=== PATIENT | female | born 1940 | race Caucasian/White ===

== ENCOUNTER 2017-02-09 09:51 | Day surgery (SDC) | payer MEDICARE ==
--- NOTE | 2017-02-05 11:58 | HP ---
PREOPERATIVE HISTORY AND PHYSICAL: DATE OF ADMISSION/SURGERY: 02/09/17 DATE OF OFFICE VISIT/ENCOUNTER: 02/01/17 ATTENDING SURGEON: Jia Mckeon MD (DICTATED BY RAMIREZ CASTANEDA) PROCEDURE: Left ring and long finger trigger finger releases. CHIEF COMPLAINT: Left ring and long finger triggering. HISTORY OF PRESENT ILLNESS: This is a 76-year-old female, who has had recurrent problems with her left ring and long fingers triggering since a fall in her kitchen back in August of 2015. At that time, she caught herself with her fingers in an extended position and since then, she has had triggering which initially responded to cortisone injection. A second cortisone injection was less helpful and at this point, the patient has been symptomatic long enough and persistent enough that she is interested in pursuing a more definitive treatment for this problem. She has consented to proceed with surgical intervention in the form of left ring and long finger trigger finger release. PAST MEDICAL HISTORY: 1. History of cerebral aneurysm in 2011. 2. Hypertension. 3. Prinzmetal angina. PAST SURGICAL HISTORY: 1. A coil placed for a 1-cm cerebral aneurysm in 2011 at [facility]. 2. Right oophorectomy. 3. Appendectomy. MEDICATIONS: 1. Amlodipine besylate 5 mg daily. 2. Vitamin B12 1000 mg daily. 3. Fish oil 1000 mg 2 daily. 4. Lisinopril 5 mg daily. 5. Meclizine HCl 12.5 mg p.r.n. vertigo. 6. Metamucil 0.52 g daily. 7. Multivitamin daily. 8. Nitrostat 0.4 mg 1 tab sublingual q.5 minutes up to 3 doses p.r.n. 9. Propranolol HCl ER 60 mg daily. 10. Senna-S 8.6/50 mg four daily. 11. Vitamin D3 2000 units daily. ALLERGIES: CIPROFLOXACIN causes nausea, CODEINE causes constipation. FAMILY MEDICAL HISTORY: Heart disease, stroke, cancer. 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 She denies tobacco use and recreational drug use. She admits to alcohol use on extremely rare occasions. REVIEW OF SYSTEMS: General: Negative for fevers, chills, or night sweats. No known anesthesia problems. HEENT: Negative for headache, lightheadedness, or syncopal episodes. Positive for occasional vertigo. Integumentary: Negative for abrasions, lesions, or open wounds. Cardiothoracic: Negative for hypertension, chest pain, palpitations, or edema. Pulmonary: Negative for shortness of breath with exertion, chronic cough, COPD. GI: Negative for nausea, vomiting, diarrhea, constipation, or GERD. : Negative for nocturia, urinary frequency, urgency, history of UTIs, or kidney problem. Musculoskeletal : Positive for current complaint. Negative for chronic or intermittent back pain or history of fractures. Neurological: Negative for paresthesias, numbness , history of seizure, stroke, or epilepsy. Endocrine: Negative for diabetes or thyroid issues. Hematologic: Negative for easy bruising, anemia, excessive bleeding, or history of DVT. Infectious Disease: Negative for history of MRSA, hepatitis C, or HIV. PHYSICAL EXAMINATION GENERAL: A well-developed, well-nourished, 76-year-old female, in no acute distress. VITAL SIGNS: Height 5 feet tall, weight 139 pounds. Blood pressure 140//80, respiratory rate 15. HEENT: Normocephalic, atraumatic. Pupils are equal, round, and reactive to light and accommodation. Extraocular movements are intact. Throat is clear. NECK: Supple. No palpable lymph nodes. PULMONARY: Lungs are clear to auscultation bilaterally. No wheezes, rales, or rhonchi. CARDIOVASCULAR: Regular rate and rhythm. S1, S2. No murmurs, rubs, or gallops. No edema. ABDOMEN: Positive bowel sounds. Soft, nontender. NEUROLOGIC: Alert and oriented x3. Cranial nerves II through XII are intact. Sensation is intact to light touch. MUSCULOSKELETAL: On exam of the patient's left hand, she has tenderness to palpation at the A1 pulleys of both the ring and long fingers. She has full flexion in her fingers, but has difficulty reaching full flexion and there is active triggering as she moves through range of motion, seems to affect her ring finger more than her long finger. Neurovascular function is intact. IMPRESSION: Left hand trigger finger of ring and long fingers. PLAN: The patient is scheduled to undergo a left ring and long finger trigger finger release with Dr. Mckeon on 02/09/17. She will return to the office 10 to 14 days postop for followup and suture removal. A prescription for Ultracet was e- scribed to the patient's pharmacy for postoperative pain management. RAMIREZ CASTANEDA [id number]/[facility] #: [id number] [facility] CENTERAnnika
[~2017-02-09 09:51] MED LIST: Acetaminophen TAB* 325 MG PO PRN; DiMENhydriNATE IV* 50 MG/ML VIAL IV PUSH PRN; Famotidine IV* 10 MG/ML 2 ML (20 mg) IV ONE; oxyCODONE TAB* 5 MG TAB PO PRN
[2017-02-09] MEDS ORDERED: Buffered Lidocaine 0.9% SYRIN* 5 ML/SYR SYRINGE ONE (10:01)
[2017-02-09] MEDS ORDERED: Famotidine IV* 10 MG/ML 2 ML (20 mg) ONE (10:01)
[2017-02-09] MEDS ORDERED: Midazolam* 1 MG/ML 5 ML VIAL (5 MG) ONE (10:04)
[2017-02-09] MEDS ORDERED: fentaNYL* 50 MCG/ML 2 ML VIAL (100 MCG VIAL) ONE (10:04)
[2017-02-09] MEDS ORDERED: Buffered Lidocaine 0.9% SYRIN* 5 ML/SYR SYRINGE INTRADERM ONE (10:43)
[2017-02-09] MEDS ORDERED: Ketorolac INJ* 30 MG/ML 1 ML VIAL ONE (11:23)
[2017-02-09] MEDS ORDERED: Lidocaine 2% PF * 5 ML VIAL ONE (11:23)
[2017-02-09] MEDS ORDERED: Propofol* 10 MG/ML 20 ML BTL IV PUSH ONE (11:23)
[2017-02-09] MEDS ORDERED: Ondansetron INJ* 2 MG/ML VIAL ONE (11:23)
[2017-02-09] MEDS ORDERED: Lidocaine 1% INJ* 10 MG/ML 30 ML SDV ONE (11:45)
[2017-02-09 12:32] VITALS: BP 122/76
--- NOTE | 2017-02-10 09:44 | OP ---
DATE OF OPERATION: 02/09/17 - [facility] DATE OF : 38 SURGEON: Jia Mckeon MD ELEPHANT TAMER: RAMIREZ Reyes ANESTHESIOLOGIST: Dahlia Starks MD ANESTHESIA: Local MAC. PRE-OP DIAGNOSIS: Long and ring finger trigger, left hand. POST-OP DIAGNOSIS: Long and ring finger trigger, left hand. OPERATIVE PROCEDURE: Long and ring finger trigger release, left hand. ESTIMATED BLOOD LOSS: Zero. TOURNIQUET TIME: About 10 minutes. INDICATIONS FOR PROCEDURE: Rachel is a 76-year-old female with locking and triggering of her left long and ring fingers. She has failed conservative treatment, presents for trigger finger release. DESCRIPTION OF PROCEDURE: The patient was brought to the operating room, was given a sedation anesthetic and a local infiltration of 10 cc of 1% plain lidocaine. The skin of her left hand and forearm was prepped and draped in the usual sterile fashion. The hand and forearm were exsanguinated and the tourniquet elevated to 250 mmHg. A transverse incision was made centered over the A1 fredi of the left long and ring finger, dissected bluntly into the subcutaneous tissue, down to the A1 pulleys. The digital neurovascular bundles were located and retracted by the surgical technician Destiney Love. The A1 pulleys of the long and ring finger were then longitudinally incised, completely releasing the flexor tendons which were in good condition. The wound was irrigated and skin edges reapproximated with 4-0 nylon suture. The wound was dressed with Xeroform, 4 x 4, Webril, and an Jame wrap. The patient tolerated the procedure well, was brought to the recovery room in good condition. [id number]/[facility] #: [id number] [facility]
== END 2017-02-09 13:01 | disposition home or self-care (01) ==
LOC: OREAST 09:51
PROVIDERS: ATTEND Orthopaedic Surgery
DX: M65.332 Trigger finger, left middle finger (principal); M65.342 Trigger finger, left ring finger
CPT/HCPCS: J1885; J2001; J2250; J2405; J2704; J3010

== ENCOUNTER 2017-04-27 09:08 | Emergency (ER) | payer MEDICARE ==
[2017-04-27] MEDS ORDERED: Ketorolac INJ* 30 MG/ML 1 ML VIAL IV PUSH ONE (10:03)
[2017-04-27] MEDS ORDERED: Orphenadrine Citrate IV* 30 MG/ML 2 ML VIAL IV ONE (10:03)
[2017-04-27] MEDS ORDERED: Dexamethasone IV* 4 MG/ML 1 ML (4 MG) IV SLOW PU ONE (10:03)
[2017-04-27] MEDS ORDERED: Morphine INJ* 4 MG/ML 1 ML CARPUJECT IV ONE (10:05)
[2017-04-27] MEDS ORDERED: Ondansetron INJ* 2 MG/ML VIAL IV ONE (10:05)
[2017-04-27] MEDS ORDERED: Morphine INJ* 2 MG/ML 1 ML CARPUJECT ONE (10:13)
--- NOTE | 2017-04-27 10:39 | RAD ---
Indication: Back pain. 3 views of lumbar spine demonstrates scoliosis of the lumbar spine with convexity towards the right centered at L2. Degenerative disc disease at L3-L4, L4-L5 and L5-S1 is noted. No fracture is noted. IMPRESSION: Scoliosis of the lumbar spine with convexity towards the right.
[2017-04-27 11:24] VITALS: BP 142/78
--- NOTE | 2017-04-27 18:35 | ED ---
Kirby Conde Angela, scribed for Sidney Harley MD on 04/27/17 at 0955 . Lower Extremity - HPI Summary HPI Summary: This pt is a 77 y/o female presenting to [facility] [place] [place] c/o right sided sciatica pain x3 weeks. Pt reports that she has been given medication by her PCP with no relief. Pt's PCP is Dr. Stanton in [facility]. She states her pain begins in the middle of her right buttocks and radiates down her right leg. Pt describes her pain as "putting a knife through her leg and ripping it." Pt denies urinary or bowel incontinence, fever, chills. PMHx: low back scoliosis. - History of Current Complaint Chief Complaint: EDExtremityLower Stated Complaint: LOWER RT LEG PAIN Time Seen by Provider: 04/27/17 09:30 Hx Obtained From: Patient Onset of Pain: Days Onset/Duration: Weeks Pain Intensity: 10 Pain Scale Used: 0-10 Numeric Timing: Constant Location: Radiates To - right leg Character Of Pain: Sharp Associated Signs And Symptoms: Positive: Knee Pain. Negative: Swelling, Redness , Weakness, Dizziness, Abdominal Pain Aggravating Factor(s): Nothing Alleviating Factor(s): Nothing - Allergies/Home Medications Allergies/Adverse Reactions: Allergies Allergy/AdvReac Type Severity Reaction Status Date / Time Ciprofloxacin [From Cipro] AdvReac general Verified 02/09/17 10:06 illness Codeine AdvReac Constipatio Verified 02/09/17 10:06 n PMH/Surg Hx/FS Hx/Imm Hx Endocrine/Hematology History: Reports: Hx Anemia - reports it's not iron- deficient, naturally low on hemoglobin Denies: Hx Diabetes Cardiovascular History: Reports: Hx Hypertension - on meds Denies: Hx Congestive Heart Failure, Hx Pacemaker/ICD History: Denies: Hx Renal Disease Musculoskeletal History: Reports: Hx Arthritis - hands and back Sensory History: Reports: Hx Cataracts - reports small at this time, Hx Contacts or Glasses - glasses Denies: Hx Hearing Aid Opthamlomology History: Reports: Hx Cataracts - reports small at this time, Hx Contacts or Glasses - glasses Neurological History: Reports: Hx Migraine - none in 5 yrs, Other Neuro Impairments/Disorders - brain aneurysm/COIL Psychiatric History: Reports: Hx Depression - lot of stress - family health issues Denies: Hx Panic Disorder - Cancer History Cancer Type, Location and Year: SKIN CA- RIGHT SHOULDER Hx Chemotherapy: No Hx Radiation Therapy: No - Surgical History Surgery Procedure, Year, and Place: 1961- OVARY REMOVED and APPENDECTOMY. 1967 TUBAL LIGATION. 02/20/12 ANUERYSM COILING-EMBOLIZATIONS : MICRUS PRESIDIO, MICRUSPHER CERECYTE & CASHMERE COILS ALL MR CONTIONAL 5 UP TO 3T {per " REFERENCE MANUAL FOR MR SAFETY,IMPANTS & DEVICES : 2012 EDITION} (SW). BASAL CELL CARCINOMA REMOVEDFROM RIGHT ARM - 1990 Hx Anesthesia Reactions: No Infectious Disease History: No Infectious Disease History: Denies: Traveled Outside the [place] in Last 30 Days - Family History Known Family History: Positive: Cardiac Disease - GRANDMOTHER - [place], Other - MOTHER - [place] - Social History Alcohol Use: Rare Hx Substance Use: No Substance Use Type: Reports: None Hx Tobacco Use: No Smoking Status (MU): Never Smoked Tobacco Review of Systems Negative: Fever, Chills Eyes: Negative ENT: Negative Negative: Palpitations, Chest Pain Negative: Shortness Of Breath Negative: other - urinary or bowel incontinence Positive: Other - right leg pain, right buttocks pain Negative: Weakness, Numbness All Other Systems Reviewed And Are Negative: Yes Physical Exam - Summary Physical Exam Summary: VITAL SIGNS: Reviewed. GENERAL: Patient is a well-developed and nourished female who is lying comfortable in the stretcher. Patient is not in any acute respiratory distress. HEAD AND FACE: No signs of trauma. No ecchymosis, hematomas or skull depressions. No sinus tenderness. EYES: PERRLA, EOMI x 2, No injected conjunctiva, no nystagmus. EARS: Hearing grossly intact. Ear canals and tympanic membranes are within normal limits. MOUTH: Oropharynx within normal limits. NECK: Supple, trachea is midline, no adenopathy, no JVD, no carotid bruit, no c- spine tenderness, neck with full ROM. CHEST: Symmetric, no tenderness at palpation LUNGS: Clear to auscultation bilaterally. No wheezing or crackles. CVS: Regular rate and rhythm, S1 and S2 present, no murmurs or gallops appreciated. ABDOMEN: Soft, non-tender. No signs of distention. No rebound no guarding, and no masses palpated. Bowel sounds are normal. EXTREMITIES: FROM in all major joints, no edema, no cyanosis or clubbing. There is tenderness on the right gluteus. There is tenderness on the back of the right knee and the anterior aspect of the right leg. There are good pulses and good capillary refill. NEURO: Alert and oriented x 3. No acute neurological deficits. Speech is normal and follows commands. SKIN: Dry and warm Triage Information Reviewed: Yes Vital Signs On Initial Exam: Initial Vitals Temp Pulse Resp BP Pulse Ox 97.6 F 101 20 171/91 68 04/27/17 09:10 04/27/17 09:10 04/27/17 09:10 04/27/17 09:10 04/27/17 09:10 Vital Signs Reviewed: Yes Diagnostics - Vital Signs Vital Signs Temp Pulse Resp BP Pulse Ox 04/27/17 09:10 97.6 F 101 20 171/91 68 - Laboratory Lab Statement: Any lab studies that have been ordered have been reviewed, and results considered in the medical decision making process. - Radiology Lumbar Spine XR Xray Interpretation: Positive (See Comments) - IMPRESSION: Scoliosis of the lumbar spine with convexity towards the right. ED physician has reviewed this radiology report and agrees. Radiology Interpretation Completed By: Radiologist Re-Evaluation - Re-Evaluation First Eval Re-Evaluation Time: 11:15 Comment: The pt's pain has improved to 1 out of 10 in severity. Lower Extremity Course/Dx - Course Assessment/Plan: This pt is a 77 y/o female presenting to [facility] [place] [place] c/o right sided sciatica pain x3 weeks. Pt reports that she has been given medication by her PCP with no relief. Pt's PCP is Dr. Stanton in [facility]. She states her pain begins in the middle of her right buttocks and radiates down her right leg. Pt describes her pain as "putting a knife through her leg and ripping it.". PMHx: low back scoliosis. Lumbar spine XR reveals scoliosis of the lumbar spine with convexity towards the right. In the ED course, the pt was given Toradol, Norflex, Decadron, and morphine. The pts symptoms have significantly improved with only 1/10 pain only with movement. Pt is able to ambulate with a good steady walk. Therefore, I do believe the pt has a sciatica problem. She is scheduled for physical therapy in 1 week. Pt will be discharged home with follow up from her PCP and follow up with physical therapy. Pt is hemodynamically stable, alert and oriented x3. - Diagnoses Provider Diagnoses: Sciatica Discharge - Discharge Plan Condition: Stable Disposition: HOME Prescriptions: Methocarbamol [Robaxin-750 MG TAB] 750 mg PO TID #12 tab oxyCODONE/Acetamin 5/325 MG* [Percocet 5/325 TAB*] 1 tab PO Q6H PRN #10 tab MDD 4 PRN Reason: Pain Patient Education Materials: Sciatica (ED) Referrals: Gris Martin MD [Primary Care Provider] - Additional Instructions: Please follow up with your primary care provider. See physical therapy as scheduled in 1 week. The documentation as recorded by the Kirby hurtado Angela accurately reflects the service I personally performed and the decisions made by Cricket patricio Walter, MD.
--- NOTE | 2017-05-03 00:30 | DS ---
DISCHARGE SUMMARY: DATE OF ADMISSION: 04/27/17 DATE OF DISCHARGE: 05/02/17. ATTENDING PHYSICIAN: Dr. Torres. DISCHARGE DIAGNOSES: 1. Herniated nucleus pulposus, L4-5 on the right. 2. Hypertension. SPECIAL PROCEDURES: Lumbar diskectomy at L4-5 on the right. HOSPITAL COURSE: This is a 77-year-old female presented to the [facility] ED on 04/27/17 with severe right -sided lumbar radiculopathy and intractable back pain. She was admitted for medical management and further evaluation of these conditions. MRI of the lumbar spine was obtained on 04/30/17, which azeem wed a large herniated disk at L4-5 on the right. Pain was managed with oral and IV pain medications , some of which she did not tolerate well. Neurosurgery was consulted for the herniated disk and po ssible surgical treatments. Elective surgical therapy with lumbar diskectomy at L4-5 on the right. Operation was discussed with the patient and she consented to this surgery. On 05/01/17, she was t aken to surgery where under general anesthesia, a lumbar diskectomy at L4-5 on the right operation w as carried out. Postoperatively, she was feeling well and the right lower extremity pain was resolve d. She continued to have some numbness of the right foot. She is ambulating independently and she was eating, drinking, and voiding without difficulty. Pain is well controlled postoperatively with oral pain medications. On the 1st postoperative day, she was discharged home to the care of her [facility]. DISCHARGE INSTRUCTIONS: Wound care and activity level were discussed with the patient and informati on was provided. FOLLOWUP: She will be seen in office on 05/09/17 for followup and staple removal. DISCHARGE MEDICAT IONS: 1. Colace 100 mg 1 capsule by mouth twice daily. 2. Senna 1 tab by mouth daily. RAMIREZ WALKER [id number]/[facility] #: [id number]
== END 2017-04-27 11:34 | disposition home or self-care (01) ==
LOC: ED 09:08
DX: M54.31 Sciatica, right side (principal); M41.9 Scoliosis, unspecified; I10 Essential (primary) hypertension; Z85.828 Personal history of other malignant neoplasm of skin; Z88.5 Allergy status to narcotic agent; Z88.1 Allergy status to other antibiotic agents
CPT/HCPCS: 72100; 96374; 96375; 99282; J1100; J1885; J2270; J2360; J2405

== ENCOUNTER 2017-04-28 15:13 | Inpatient (IN) | payer MEDICARE ==
[2017-04-28] MEDS ORDERED: HYDROmorphone INJ* 1 MG/ML CARPUJECT SYRINGE IV SLOW PU ONE (16:04)
[2017-04-28] MEDS ORDERED: Ondansetron INJ* 2 MG/ML VIAL IV ONE (16:04)
[2017-04-28] MEDS ORDERED: NS 0.9% 1000 ML* 1,000 ML IV ONE (16:36)
[2017-04-28 16:58] LABS: Hematocrit 34 % (35-47); Hemoglobin 11.6 g/dl (12.0-16.0); Mean Corpuscular HGB Conc 34 g/dl (31-36); Mean Corpuscular Hemoglobin 31 pg (27-31); Mean Corpuscular Volume 91 fL (80-97); Mean Platelet Volume 7 um3 (7.4-10.4); Red Blood Count 3.76 10^6/ul (4.0-5.4); Red Cell Distribution Width 13 % (10.5-15); White Blood Count 16.5 10^3/ul (3.5-10.8)
[2017-04-28] MEDS ORDERED: Metoclopramide IV* 5 MG/ML 2 ML VIAL ONE (16:59)
[2017-04-28 17:09] LABS: Albumin 3.8 g/dL (3.2-5.2); BUN/Creatinine Ratio 15.9 (8-20); Calcium 9.1 mg/dL (8.6-10.3); EGFR African American 86.7 (>60); EGFR Non-African American 67.4 (>60); Globulin 2.7 g/dL (2-4); Potassium 3.2 mmol/L (3.5-5.0); Total Bilirubin 0.7 mg/dL (0.2-1.0); Total Protein 6.5 g/dL (6.4-8.9)
[2017-04-28] MEDS ORDERED: Metoclopramide IV* 5 MG/ML 2 ML VIAL IV SLOW PU ONE (17:19)
[2017-04-28 17:45] LABS: C Reactive Protein 2.85 mg/L (< 5.00)
[2017-04-28] MEDS ORDERED: Potassium Chloride LIQUID* 20 MEQ PACKET PO ONE (17:48)
[2017-04-28] MEDS ORDERED: Promethazine INJ(RESTRICTED)* 25 MG/ML 1 ML VIAL IV ONE (17:53)
[2017-04-28] MEDS ORDERED: Al Hydrox/Mg Hydrox/Simet LIQ* 30 ML UDC PO PRN (18:01)
[2017-04-28] MEDS ORDERED: Morphine INJ* 2 MG/ML 1 ML CARPUJECT IV PRN (18:01)
[2017-04-28] MEDS ORDERED: Potassium Phosphate IV* 15 MMOLE in NS 0.9% 250 ML* 250 ML IVPB ONE (18:44)
[2017-04-28] MEDS ORDERED: Enoxaparin(*) 40 MG/0.4 ML SYR SUBCUT SCH (19:00)
[2017-04-28 19:06] LABS: Erythrocyte Sed Rate 16 mm/Hr (0-40)
[2017-04-28] MEDS ORDERED: Ondansetron INJ* 2 MG/ML VIAL IV PRN (20:02)
--- NOTE | 2017-04-28 23:00 | HP ---
HISTORY AND PHYSICAL: DATE OF ADMISSION: 04/28/17 TIME OF ADMISSION: 06:30 p.m. PRIMARY CARE PHYSICIAN: Dr. Ramsey. CHIEF COMPLAINT: Low back pain. HISTORY OF PRESENT ILLNESS: This is a 77-year-old female with history of hypertension, who presents to the emergency department after 4 weeks of ongoing low back pain. It began 3 to 4 weeks ago suddenly one morning when she woke up. She recalls no trauma, no fall, no heavy lifting, and cannot think of any event that would have caused this type of pain. It began in the lower part of her back on the right side and is described as knife like. The pain is intermittent. She cannot associate it with any particular positions or movements that aggravate it nor can she identify any relieving factors. The pain comes on randomly and sometimes lasts for just seconds and sometimes is unremitting. The pain radiates down her right leg all the way to the tips of her toes and she describes it as on both the front and the back of the leg. Prior to 3 weeks ago, she was able to ambulate without any difficulty or assistive devices; however, over the past week, she has had trouble ambulating in her home. When this first began, she went to her chiropractor and had several adjustments, which occasionally helped but not consistently. She also went to see her PCP, who prescribed prednisone and gabapentin, which she reports did not help, then yesterday the pain became unbearable so she came to the emergency department. Here, she was given a prescription for Percocet, which she was taking as prescribed and got no relief, so she came back today to the emergency department. Since she has been in the emergency department, she received 1 mg of Dilaudid, which just made her nauseous and did not relieve the pain. She denies any recent weight loss or weight gain. No recent travel. No IV drug use. PAST MEDICAL HISTORY: 1. "Heart spasms." 2. Hypertension. PAST SURGICAL HISTORY: 1. Brain aneurysm, status post coiling in January of 2012. 2. Trigger finger release in January of 2017. ALLERGIES: CODEINE and CIPROFLOXACIN. SOCIAL HISTORY: She lives in a home with her daughter. She does not smoke or drink alcohol. Her healthcare proxy is her daughter, Izabel. Izabel's phone number is [phone]. REVIEW OF SYSTEMS: General: Denies weight loss, but does note some weight gain. Denies any recent illness or hospitalization. HEENT: Denies change in vision. Denies headaches or neck stiffness. Chest: Denies chest pain, shortness of breath. Does note occasional palpitations. Abdomen: Denies nausea, vomiting, constipation or diarrhea. Denies bowel or bladder incontinence. Denies saddle anesthesia. Extremities: Notes right lower extremity pain associated with occasional weakness and severe low back pain. PHYSICAL EXAMINATION GENERAL: Alert, well-appearing female, in no distress. VITAL SIGNS: Temperature 97.4 degrees, heart rate 69, respiratory rate 16, pulse ox 100% on room air, blood pressure 129/72. HEENT: Pupils equal, round, and reactive to light. Extraocular movements intact. No nystagmus. Moist mucosa. NECK: No JVP. Thyroid is nonpalpable. No cervical adenopathy. CHEST: Regular rate and rhythm. No murmurs. PMI nondisplaced. Lungs are clear bilaterally. ABDOMEN: Soft, nontender, nondistended. Normoactive bowel sounds. EXTREMITIES: No edema. No ecchymosis. Pulses 2+ bilaterally. Sensation intact. NEUROLOGIC: Back is nontender to palpation; however, she localizes the pain superiorly to the right posterior superior iliac spine. A right lower extremity straight leg raise test is positive and reproduces the pain. Her strength is 5+ throughout except in hip flexion which is limited by pain. LABORATORY DATA: White blood cells 16.5, hemoglobin 11.6, platelets 373. Sodium 125, potassium 3.2, chloride 94, bicarbonate 22, BUN 13, creatinine 0.82 , glucose 122. IMAGING: Lumbar spine x-ray done on 04/27/17 showed scoliosis of the lumbar spine with convexity towards the right. ASSESSMENT AND PLAN: This is a 77-year-old female with history of hypertension presenting with 3 to 4 weeks of worsening low back pain, now with the inability to walk due to pain and is being admitted for intractable pain. 1. Low back pain. Her pain has been nonresponsive to conservative measures so it is appropriate that she is admitted for intractable pain. We will switch her Percocet to IV morphine, which worked for her yesterday. She needs a physical therapy consult for evaluation and ultimately likely needs an MRI as her pain has been nonresponsive to conservative management for 1 month. This likely cannot be done on the weekend; however if her pain does not improve over the next 24 hours, she may be a good candidate for an inpatient MRI after tomorrow. She has no midline point tenderness concerning for an epidural process and she has no bowel or bladder incontinence that would suggest red flag signs. 2. Hypertension. Continue home doses of amlodipine and lisinopril. 3. "Heart spasms." I am not sure what these are, perhaps palpitations, continue propranolol ER 60 mg daily. She follows with Dr. Alejandro for this. 4. DVT prophylaxis. Start Lovenox subcutaneously. 5. Hyponatremia. This is noted to be chronic on all of her admissions. It may be exacerbated today by the pain. She is euvolemic. No intervention needed. 6. Hypokalemia. Replete p.o. now. 7. Leukocytosis, likely related to a leukemoid reaction from pain. She has no focal evidence of an infection. Continue to monitor. TIME SPENT: Greater than 60 minutes were spent on this admission. Greater than half of the time was spent face to face with the patient and her daughter. [id number]/[facility] #: [id number] MTD[facility]
[2017-04-28] MEDS: Morphine INJ* 2 MG/ML 1 ML SYRINGE (TWO MG - NEW SYRINGE VERSION) IV PRN (23:21)
[2017-04-29] MEDS: Morphine INJ* 2 MG/ML 1 ML SYRINGE (TWO MG - NEW SYRINGE VERSION) IV PRN (02:37)
[2017-04-29] MEDS: fentaNYL* 50 MCG/ML 2 ML VIAL (100 MCG VIAL) IV PRN ×5 (04:41→18:19)
[2017-04-29 06:09] LABS: Hematocrit 38 % (35-47); Hemoglobin 12.8 g/dl (12.0-16.0); Mean Corpuscular HGB Conc 34 g/dl (31-36); Mean Corpuscular Hemoglobin 31 pg (27-31); Mean Corpuscular Volume 91 fL (80-97); Mean Platelet Volume 7 um3 (7.4-10.4); Red Blood Count 4.15 10^6/ul (4.0-5.4); Red Cell Distribution Width 14 % (10.5-15); White Blood Count 12.7 10^3/ul (3.5-10.8)
[2017-04-29 06:19] LABS: BUN/Creatinine Ratio 13.2 (8-20); Calcium 9.1 mg/dL (8.6-10.3); EGFR African American 94.7 (>60); EGFR Non-African American 73.6 (>60); Potassium 4.1 mmol/L (3.5-5.0)
[2017-04-29] MEDS ORDERED: Lidocaine PATCH 5%* 1 PATCH TRANSDERM SCH (08:00)
[2017-04-29] MEDS: Acetaminophen TAB* 325 MG PO SCH ×3 (08:55→20:08)
[2017-04-29] MEDS: Propranolol LA CAP* 60 MG PO SCH (08:55)
[2017-04-29] MEDS: Cyanocobalamin TAB* 500 MCG PO SCH (08:56)
[2017-04-29] MEDS: amLODIPine TAB* 5 MG PO SCH (08:56)
[2017-04-29] MEDS: Lisinopril TAB* 5 MG PO SCH (08:56)
[2017-04-29] MEDS ORDERED: Influenza VAC *QUAD* 2017-18* 0.5 ML SYRINGE IM ONE (09:00)
--- NOTE | 2017-04-29 13:49 | PN ---
Subjective Date of Service: 04/29/17 Interval History: Patient seen this morning. Continues to complain of low back pain radiating down the R leg. Some slight tingling in her R foot at times. Denies bladder/ bowel incontinence. Hip flexion limited by pain. Family History: Unchanged from Admission Social History: Unchanged from Admission Past Medical History: Unchanged from Admission Objective Active Medications: Acetaminophen (Tylenol Tab*) 975 mg PO TID GISEL Al Hydrox/Mg Hydrox/Simethicone (Maalox Plus*) 30 ml PO Q6H PRN Amlodipine Besylate (Norvasc Tab*) 5 mg PO QAM GISEL Aspirin (Aspirin Low Dose Tab*) 81 mg PO QPM GISEL Cyanocobalamin (Vitamin B12 Tab*) 1,000 mcg PO QAM GISEL Docusate Sodium (Colace Cap*) 100 mg PO BID GISEL Enoxaparin Sodium (Lovenox(*)) 40 mg SUBCUT Q24H GISEL Fentanyl Citrate (Fentanyl*) 50 mcg IV Q2H PRN Gabapentin (Neurontin Cap(*)) 200 mg PO TID GISEL Lidocaine (Lidoderm 5% Patch*) 1 patch TRANSDERM .SEE ORDER GISEL Lisinopril (Prinivil Tab*) 5 mg PO QAM GISEL Ondansetron HCl (Zofran Inj*) 4 mg IV Q6H PRN Pharmacy Profile Note (Lidocaine Patch Remove*) 1 note N/A 2100 GISEL Propranolol HCl (Inderal La Cap*) 60 mg PO DAILY [facility] Senna (Senokot Tab*) 1 tab PO DAILY [facility] Oxygen Devices in Use Now: None Appearance: Elderly, F, laying in bed in NAD Eyes: No Scleral Icterus Ears/Nose/Mouth/Throat: Mucous Membranes Moist Neck: NL Appearance and Movements; NL JVP Respiratory: Symmetrical Chest Expansion and Respiratory Effort, Clear to Auscultation Cardiovascular: NL Sounds; No Murmurs; No JVD, RRR Abdominal: NL Sounds; No Tenderness; No Distention Lymphatic: No Cervical Adenopathy Extremities: No Edema Skin: No Rash or Ulcers Neurological: Alert and Oriented x 3, - - Hip flexion limited by pain, straight leg raise elicits same pain radiating down the leg, reports some diminished sensation over plantar surface of R foot Result Diagrams: 04/29/17 05:45 04/29/17 05:45 Assess/Plan/Problems-Billing Assessment: Radicular back pain in a 77 yo F with hx of HTN, chronic hyponatremia - Patient Problems (1) Back pain Current Visit: Yes Comment: Seems like radiculopathy. Did not tolerate morphine or dilaudid, changed to Fentanyl overnight, will continue. Add ATC tylenol, Lidoderm patch and gabapentin. Agree with MRI for tomorrow as this has been ongoing and worsening for nearly one month. Bowel regimen. (2) HTN (hypertension) Current Visit: Yes Comment: Continue Amlodipine, Propranolol and Lisinopril (3) DVT prophylaxis Current Visit: Yes Comment: Lovenox SQ Status and Disposition: Inpatient for intractable pain
[2017-04-29] MEDS: Gabapentin CAP(*) 100 MG PO SCH ×2 (13:58→20:08)
[2017-04-29] MEDS: Senna TAB PO SCH (13:58)
[2017-04-29] MEDS: Aspirin Low Dose CHEW TAB* 81 MG PO SCH (17:20)
[2017-04-29] MEDS: Docusate CAP* 100 MG PO SCH (20:08)
[2017-04-29] MEDS: Lidocaine Patch REMOVE* 1 NOTE MISC SCH (20:13)
[2017-04-29] MEDS ORDERED: Enoxaparin(*) 40 MG/0.4 ML SYR SUBCUT SCH (21:00)
[2017-04-30] MEDS: fentaNYL* 50 MCG/ML 2 ML VIAL (100 MCG VIAL) IV PRN ×7 (03:25→22:00)
[2017-04-30 07:28] LABS: Hematocrit 36 % (35-47); Hemoglobin 12.4 g/dl (12.0-16.0); Mean Corpuscular HGB Conc 34 g/dl (31-36); Mean Corpuscular Hemoglobin 31 pg (27-31); Mean Corpuscular Volume 92 fL (80-97); Mean Platelet Volume 7 um3 (7.4-10.4); Red Blood Count 3.95 10^6/ul (4.0-5.4); Red Cell Distribution Width 14 % (10.5-15); White Blood Count 9.3 10^3/ul (3.5-10.8)
[2017-04-30 07:48] LABS: BUN/Creatinine Ratio 17.5 (8-20); EGFR African American 71.4 (>60); EGFR Non-African American 55.5 (>60); Potassium 3.8 mmol/L (3.5-5.0)
[2017-04-30] MEDS: Cyanocobalamin TAB* 500 MCG PO SCH (08:14)
[2017-04-30] MEDS: Acetaminophen TAB* 325 MG PO SCH ×3 (08:14→19:54)
[2017-04-30] MEDS: Propranolol LA CAP* 60 MG PO SCH (08:14)
[2017-04-30] MEDS: Senna TAB PO SCH (08:14)
[2017-04-30] MEDS: Lisinopril TAB* 5 MG PO SCH (08:14)
[2017-04-30] MEDS: Docusate CAP* 100 MG PO SCH ×2 (08:15→19:55)
[2017-04-30] MEDS: Gabapentin CAP(*) 100 MG PO SCH ×3 (08:15→19:55)
[2017-04-30] MEDS: amLODIPine TAB* 5 MG PO SCH (08:15)
--- NOTE | 2017-04-30 11:06 | RAD ---
HISTORY: Progressive and intractable back pain COMPARISONS: None TECHNIQUE: The following sequences were obtained of the lumbar spine: Sagittal and axial T1- and T2-weighted images, coronal T2-weighted images, and sagittal STIR images. FINDINGS: SPINAL CORD, CONUS, AND CAUDA EQUINA: There is extruded disc fragment versus a nodule of the cauda equina opposite of L4 measuring approximately 0.8 cm transversely. ALIGNMENT: There is a dextroscoliotic curvature of the spine. VERTEBRAL BODIES: There is a hemangioma of L3. There is multilevel anterolateral marginal osteophyte formation. The vertebral bodies are preserved in height. JOINTS: There is diffuse facet osteoarthritic change MUSCULATURE: Unremarkable INTERVERTEBRAL DISCS: There is diffuse loss of intervertebral disc height and T2 signal throughout the spine. AXIAL IMAGES: L2-L3: There is broad based disc bulge with a small central disc protrusion measuring 0.2 centers in depth. There is bilateral facet hypertrophy. There is severe left neural foraminal narrowing. There is no significant central canal stenosis. L3-L4: There is a broad-based disc bulge. There is a disc extrusion extending from L4-L5 impinging upon the descending nerve roots on the right. As noted above, there is also nodularity noted in the left lateral recess at this level measuring 0.8 cm transversely which may represent a nodule of the nerve roots versus an extruded disc fragment. There is no disc extrusion and nodule versus disc fragment 2. Results in moderate to severe narrowing of the central canal L4-L5: There is broad-based disc bulge. There is a a right lateral recess superior disc extrusion measuring 1 cm in depth and 2 cm in cranial caudal dimension, extending to the L3-L4 level. There is bilateral facet hypertrophy with ligamentous of atrophy. There is severe right neural foraminal narrowing. L5-S1: There is bilateral facet hypertrophy. There is mild bilateral neuroforaminal narrowing. There is no significant central canal stenosis. SOFT TISSUES: The visualized soft tissues of the abdomen are unremarkable. OTHER: None. IMPRESSION: 1. SCOLIOSIS. 2. DEGENERATIVE DISC DISEASE AND OSTEOARTHRITIS. 3. THERE IS A LARGE RIGHT-SIDED DISC EXTRUSION AT L4-L5 EXTENDING TO THE L3-L4 LEVEL, WITH MASS EFFECT UPON THE DESCENDING NERVE ROOTS. 4. ADDITIONALLY, THERE IS A NODULE NOTED IN THE LEFT LATERAL RECESS AT L3-L4. IT IS UNCLEAR IF THIS REPRESENTS AN EXTRUDED DISC FRAGMENT OR A NODULE OF THE NERVE ROOTS OF THE CAUDA EQUINA. THE DIFFERENTIAL INCLUDES PERIPHERAL NERVE SHEATH TUMOR. RECOMMEND CONSIDERATION OF FURTHER EVALUATION WITH POSTCONTRAST ENHANCED MRI OF THE LUMBAR SPINE. 5. THERE IS MULTILEVEL NEURAL FORAMINAL NARROWING DESCRIBED ABOVE. THERE IS MODERATE TO SEVERE NARROWING OF THE CENTRAL CANAL AT L3-L4.
[2017-04-30] MEDS ORDERED: Magnesium Hydroxide LIQ* 30 ML UDC PO PRN (12:31)
[2017-04-30] MEDS: Polyethylene Glycol 3350* 17 GM PACKET PO SCH ×2 (13:57→19:55)
--- NOTE | 2017-04-30 14:38 | PN ---
Subjective Date of Service: 04/30/17 Interval History: Patient seen this morning. Pain mostly unchanged. R foot tingling unchanged. Reports feeling constipated, OK PO intake. Family History: Unchanged from Admission Social History: Unchanged from Admission Past Medical History: Unchanged from Admission Objective Active Medications: Acetaminophen (Tylenol Tab*) 975 mg PO TID [facility] Last Admin: 04/30/17 13:57 Dose: 975 mg Al Hydrox/Mg Hydrox/Simethicone (Maalox Plus*) 30 ml PO Q6H PRN PRN Reason: INDIGESTION Amlodipine Besylate (Norvasc Tab*) 5 mg PO QAM [facility] Last Admin: 04/30/17 08:15 Dose: 5 mg Aspirin (Aspirin Low Dose Tab*) 81 mg PO QPM [facility] Last Admin: 04/29/17 17:20 Dose: 81 mg Cyanocobalamin (Vitamin B12 Tab*) 1,000 mcg PO QAM [facility] Last Admin: 04/30/17 08:14 Dose: 1,000 mcg Docusate Sodium (Colace Cap*) 100 mg PO BID [facility] Last Admin: 04/30/17 08:15 Dose: 100 mg Enoxaparin Sodium (Lovenox(*)) 40 mg SUBCUT Q24HR@2100 [facility] Last Admin: 04/29/17 20:07 Dose: 40 mg Fentanyl Citrate (Fentanyl*) 50 mcg IV Q2H PRN PRN Reason: PAIN Last Admin: 04/30/17 13:56 Dose: 50 mcg Gabapentin (Neurontin Cap(*)) 200 mg PO TID [facility] Last Admin: 04/30/17 13:56 Dose: 200 mg Lidocaine (Lidoderm 5% Patch*) 1 patch TRANSDERM .SEE ORDER [facility] Last Admin: 04/30/17 13:57 Dose: 1 patch Lisinopril (Prinivil Tab*) 5 mg PO QAM [facility] Last Admin: 04/30/17 08:14 Dose: 5 mg Magnesium Hydroxide (Milk Of Magnesia Liq*) 30 ml PO Q6H PRN PRN Reason: CONSTIPATION Ondansetron HCl (Zofran Inj*) 4 mg IV Q6H PRN PRN Reason: NAUSEA Last Admin: 04/28/17 20:20 Dose: 4 mg Pharmacy Profile Note (Lidocaine Patch Remove*) 1 note N/A 2100 [facility] Last Admin: 04/29/17 20:13 Dose: Not Given Polyethylene Glycol/Electrolytes (Miralax*) 17 gm PO 0800,2100 [facility] Last Admin: 04/30/17 13:57 Dose: 17 gm Propranolol HCl (Inderal La Cap*) 60 mg PO DAILY [facility] Last Admin: 04/30/17 08:14 Dose: 60 mg Senna (Senokot Tab*) 1 tab PO DAILY [facility] Last Admin: 04/30/17 08:14 Dose: 1 tab Vital Signs 04/29/17 04/29/17 04/29/17 14:59 15:57 16:27 Temperature 98.6 F Pulse Rate 76 Respiratory 16 16 18 Rate Blood Pressure 137/67 (mmHg) O2 Sat by Pulse 100 Oximetry 04/30/17 04/30/17 04/30/17 04:25 07:29 08:03 Temperature 98.0 F Pulse Rate 74 Respiratory 17 16 20 Rate Blood Pressure 130/63 (mmHg) O2 Sat by Pulse 98 Oximetry Oxygen Devices in Use Now: None Appearance: Elderly, F, laying in bed in NAD Eyes: No Scleral Icterus Ears/Nose/Mouth/Throat: Mucous Membranes Moist Neck: NL Appearance and Movements; NL JVP Respiratory: Symmetrical Chest Expansion and Respiratory Effort, Clear to Auscultation Cardiovascular: NL Sounds; No Murmurs; No JVD, RRR Abdominal: NL Sounds; No Tenderness; No Distention Lymphatic: No Cervical Adenopathy Extremities: No Edema Skin: No Rash or Ulcers Neurological: Alert and Oriented x 3, - - 5/5 strength in B/L LEs, reports diminished sensation over plantar surface of R foot Result Diagrams: 04/30/17 07:07 04/30/17 07:07 Assess/Plan/Problems-Billing Assessment: Radicular back pain in a 77 yo F with hx of HTN, chronic hyponatremia - Patient Problems (1) Back pain Current Visit: Yes Comment: MRI shows significant disc herniation, spoke with Neurosurgery who will evaluate the patient to consider need for operative management. Obtained cath report from [facility] 2013 which was unremarkable. Patient has no hx of IL, CHF, DM, CKD, CVA or exertional CP/dyspnea. She does not require any additional work-up prior to surgery if it is indicated Continue Fentanyl, ATC tylenol, Lidoderm patch and gabapentin. Bowel regimen. (2) HTN (hypertension) Current Visit: Yes Comment: Continue Amlodipine, Propranolol and Lisinopril (3) DVT prophylaxis Current Visit: Yes Comment: Lovenox SQ Status and Disposition: Inpatient for intractable pain
[2017-04-30] MEDS: Aspirin Low Dose CHEW TAB* 81 MG PO SCH (16:57)
--- NOTE | 2017-04-30 17:05 | PN ---
Progress Note - Progress Note Date of Service: 04/30/17 SOAP: Subjective: [] Patient seen for back, right leg pain 3 week hx and large HNP on MRI Objective: []Weakness rt quad,hip flexors KJ trace on RT SLR positive on RT Assessment: [] HNP L4-5 RT Plan: [] Surgery sched for AM 10/3 Full Consult Dictated
[2017-04-30] MEDS: Lidocaine Patch REMOVE* 1 NOTE MISC SCH (19:55)
--- NOTE | 2017-04-30 21:02 | RAD ---
INDICATION: Wheezing COMPARISON: Chest x-ray July 14, 2016 TECHNIQUE: Single AP portable view of the chest was obtained. FINDINGS: Image quality is compromised due to the relative inferiority of a portable chest x-ray. The heart and mediastinum exhibit normal size and contour. The lungs are grossly clear. There is no evidence of a large pleural effusion. Visualized bones are normal for the patient's age. IMPRESSION: No radiographic evidence for acute cardiopulmonary abnormality on this portable chest x-ray.
--- NOTE | 2017-04-30 22:03 | CONS ---
INPATIENT CONSULTATION NOTE: DATE OF CONSULTATION: 04/30/17 CHIEF COMPLAINT: Back and right leg pain. HISTORY OF PRESENT ILLNESS: This is a 77-year-old lady awakened with the sudden onset of pain in her back with radiation into her right leg approximately 3 weeks ago. She has a long history of chronic back pain for which she seeks regular rn homecare, which is usually successful. In the last 3 weeks, she has had rn homecare with no relief. She has pain in her back with radiation into her right leg as well as numbness involving her right leg and foot. She has had give away weakness when she tries to go up and down stairs involving her right quadriceps muscle. She was admitted to the hospitalist service and an MRI study obtained showing a large ruptured disk at L4-5 on the right side with a superiorly migrated fragment. Neurosurgical consultation was requested. The patient has persistent pain whenever she tries to get up and ambulate. PAST MEDICAL HISTORY: Significant for previous diagnosis of hypertension. 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 ALLERGIES: She is allergic to CODEINE and CIPRO. FAMILY HISTORY: Family history was taken and did not contribute to this illness. SOCIAL HISTORY: She does not smoke or drink. Has a supportive family. REVIEW OF SYSTEMS: Systems review was performed and did not contribute to this illness. PHYSICAL EXAMINATION: Vital Signs: She was noted to have a blood pressure of 129/72 with heart rate of 69, temperature of 97.4, respirations of 16. HEENT: Normal. Neck: Supple. Lungs: Clear to auscultation. Cardiovascular exam revealed a regular rate and rhythm. Abdomen: Soft with normal bowel sounds. No tenderness. Extremities: Full range of passive motion. Straight leg raise test was positive on the right side at 45 degrees. Reflexes were trace at the right knee and 2+ at the left knee, and 1+ at both ankles, with downgoing toes and no clonus. Motor examination revealed mild weakness of her hip flexors and quadriceps muscle on the right side. IMAGING: An MRI study showed a disk herniation at L4-5 on the right side with a superiorly migrated fragment. There is also a question of a possible intrathecal cystic area on the left side. IMPRESSION: She is symptomatic from a large free fragment disk herniation. A proposed procedure of lumbar diskectomy was explained in detailed to the patient. The risks of surgery to include bleeding, infection, numbness, weakness , CSF leak, and potential failure to relieve her pain were all discussed. Surgery will be scheduled for 05/01/17. [id number]/[facility] #: [id number] [facility]
[2017-05-01] MEDS: fentaNYL* 50 MCG/ML 2 ML VIAL (100 MCG VIAL) IV PRN ×3 (00:22→05:34)
[2017-05-01] MEDS: amLODIPine TAB* 5 MG PO SCH (05:30)
[2017-05-01] MEDS: Propranolol LA CAP* 60 MG PO SCH (05:30)
[2017-05-01] MEDS ORDERED: Bacitracin IV* 50,000 UNITS INJ ONE (07:26)
[2017-05-01] MEDS ORDERED: Lidocaine 1% MPF wEPI 200,000* 30 ML SDV ONE (07:26)
[2017-05-01] MEDS ORDERED: Thrombin 5,000 UNITS* 1 APPLIC KIT - topical use - TOPICAL ONE (07:26)
[2017-05-01] MEDS ORDERED: ceFAZolin 2 GM PREMIX (*) 50 ML IVPB ONE (07:28)
[2017-05-01] MEDS ORDERED: Lidocaine 2% PF * 5 ML VIAL ONE (07:37)
[2017-05-01] MEDS ORDERED: Propofol* 10 MG/ML 20 ML BTL IV PUSH ONE (07:37)
[2017-05-01] MEDS ORDERED: Dexamethasone IV* 4 MG/ML 1 ML (4 MG) ONE (07:37)
[2017-05-01] MEDS ORDERED: Rocuronium* 10 MG/ML VIAL ONE (07:38)
[2017-05-01] MEDS ORDERED: fentaNYL* 50 MCG/ML 2 ML VIAL (100 MCG VIAL) ONE (07:38)
[2017-05-01] MEDS ORDERED: Glycopyrrolate IV* 0.2 MG/ML 1 ML VIAL ONE (08:39)
[2017-05-01] MEDS ORDERED: Neostigmine Methylsulfate* 2 MG/2 ML SYRINGE ONE (08:39)
[2017-05-01] MEDS ORDERED: fentaNYL* 50 MCG/ML 2 ML VIAL (100 MCG VIAL) IV PRN (08:43)
[2017-05-01] MEDS ORDERED: Ketorolac INJ* 30 MG/ML 1 ML VIAL IV PRN (08:43)
[2017-05-01] MEDS ORDERED: traMADol TAB* 50 MG PO PRN (09:07)
[2017-05-01] MEDS: Polyethylene Glycol 3350* 17 GM PACKET PO SCH ×2 (10:42→20:50)
[2017-05-01] MEDS: Docusate CAP* 100 MG PO SCH ×2 (10:42→20:48)
[2017-05-01] MEDS: Cyanocobalamin TAB* 500 MCG PO SCH (10:42)
[2017-05-01] MEDS: Gabapentin CAP(*) 100 MG PO SCH ×3 (10:42→20:49)
[2017-05-01] MEDS: Acetaminophen TAB* 325 MG PO SCH ×3 (10:42→20:49)
[2017-05-01] MEDS: Senna TAB PO SCH (10:43)
[2017-05-01] MEDS: Lisinopril TAB* 5 MG PO SCH (10:43)
--- NOTE | 2017-05-01 10:53 | RAD ---
INDICATION: L4-L5 discectomy. COMPARISON: April 30, 2017 MRI. TECHNIQUE: Prone crosstable lateral lumbar spine 0820 hours FINDINGS: Anterior margin of instrument at level of the L4-L5 facet joints. IMPRESSION: Interoperative control films.
--- NOTE | 2017-05-01 13:12 | PN ---
Subjective Date of Service: 05/01/17 Interval History: Patient seen after surgery this morning. Reports back pain radiating down the leg has resolved along with the R foot numbness. Only pain is at surgical site. Has been ambulatory in the room. Family History: Unchanged from Admission Social History: Unchanged from Admission Past Medical History: Unchanged from Admission Objective Active Medications: Acetaminophen (Tylenol Tab*) 975 mg PO TID [facility] Al Hydrox/Mg Hydrox/Simethicone (Maalox Plus*) 30 ml PO Q6H PRN Amlodipine Besylate (Norvasc Tab*) 5 mg PO 0900 [facility] Aspirin (Aspirin Low Dose Tab*) 81 mg PO QPM [facility] Cyanocobalamin (Vitamin B12 Tab*) 1,000 mcg PO QAM [facility] Docusate Sodium (Colace Cap*) 100 mg PO BID [facility] Gabapentin (Neurontin Cap(*)) 200 mg PO TID [facility] Lactated Ringer's (Lactated Ringers 1000 Ml Bag*) 1,000 mls @ 75 mls/hr IV .per rate [facility] Lisinopril (Prinivil Tab*) 5 mg PO QAM [facility] Magnesium Hydroxide (Milk Of Magnesia Liq*) 30 ml PO Q6H PRN Ondansetron HCl (Zofran Inj*) 4 mg IV Q6H PRN Polyethylene Glycol/Electrolytes (Miralax*) 17 gm PO 0800,2100 [facility] Propranolol HCl (Inderal La Cap*) 60 mg PO 0900 [facility] Senna (Senokot Tab*) 1 tab PO DAILY [facility] Tramadol HCl (Ultram*) 50 mg PO Q6H PRN Vital Signs 04/30/17 04/30/17 04/30/17 13:56 14:56 15:06 Temperature 98.2 F Pulse Rate 75 Respiratory 14 16 16 Rate Blood Pressure 121/60 (mmHg) O2 Sat by Pulse 96 Oximetry 04/30/17 04/30/17 04/30/17 22:00 23:00 23:54 Temperature 98.1 F Pulse Rate 73 Respiratory 20 19 16 Rate Blood Pressure 119/70 (mmHg) O2 Sat by Pulse 99 Oximetry 05/01/17 05/01/17 05/01/17 10:15 10:30 11:00 Temperature 97.4 F Pulse Rate 73 72 75 Respiratory 18 18 17 Rate Blood Pressure 155/84 150/75 (mmHg) O2 Sat by Pulse 97 97 96 Oximetry Oxygen Devices in Use Now: None Appearance: Elderly, F, laying in bed in NAD Eyes: No Scleral Icterus Ears/Nose/Mouth/Throat: Mucous Membranes Moist Neck: NL Appearance and Movements; NL JVP Respiratory: Symmetrical Chest Expansion and Respiratory Effort, - - Rales in B/ L bases Cardiovascular: NL Sounds; No Murmurs; No JVD, RRR Abdominal: NL Sounds; No Tenderness; No Distention Lymphatic: No Cervical Adenopathy Extremities: No Edema Skin: No Rash or Ulcers Neurological: Alert and Oriented x 3, NL Sensation, NL Muscle Strength and Tone Result Diagrams: 04/30/17 07:07 04/30/17 07:07 Assess/Plan/Problems-Billing Assessment: Radicular back pain in a 77 yo F with hx of HTN, chronic hyponatremia - Patient Problems (1) Back pain Current Visit: Yes Comment: MRI showed significant disc herniation. Appreciate Dr. Torres assistance, patient s/p discectomy on 05/01 with improvement in her symptoms Continue ATC tylenol, Lidoderm patch and gabapentin. Bowel regimen. (2) HTN (hypertension) Current Visit: Yes Comment: Continue Amlodipine, Propranolol and Lisinopril (3) DVT prophylaxis Current Visit: Yes Comment: Lovenox SQ Status and Disposition: Inpatient, s/p discectomy
[2017-05-01] MEDS ORDERED: Magnesium CITRATE* 300 ML BTL PO ONE (14:00)
[2017-05-01] MEDS ORDERED: Bisacodyl SUPP* 10 MG SUPP PR PRN (14:21)
[2017-05-01] MEDS ORDERED: oxyCODONE TAB* 5 MG TAB ONE (14:23)
[2017-05-01] MEDS: oxyCODONE TAB* 5 MG TAB PO PRN ×2 (14:29→23:31)
[2017-05-01] MEDS: Aspirin Low Dose CHEW TAB* 81 MG PO SCH (18:49)
--- NOTE | 2017-05-02 07:43 | PN ---
Progress Note - Progress Note Date of Service: 05/02/17 SOAP: Subjective: [S/p lumbar discectomy L4-5 on the right, POD #1. Complains of some incisional soreness. RLE pain and numbness improved. Ambulating independently. Eating, drinking and voiding without difficulty. Denies headache and nausea.] Objective: [ Vital Signs: Temp Pulse Resp BP Pulse Ox 98.4 F 81 16 120/58 99 05/02/17 03:53 05/02/17 03:53 05/02/17 03:53 05/02/17 03:53 05/02/17 03:53 General: Alert and oriented. No distress. Neuro: Motor and sensory intact. Incision: Intact with chiara. No infection, no swelling. Extremities: Full ROM.] Assessment: [Satisfactory post-op course. Pain is well controlled. ] Plan: [1. Discharge home today. 2. Discharge instructions including wound care and activity level discussed. ]
[2017-05-02 08:28] VITALS: BP 121/63
[2017-05-02] MEDS: Polyethylene Glycol 3350* 17 GM PACKET PO SCH (08:32)
[2017-05-02] MEDS: Acetaminophen TAB* 325 MG PO SCH (08:32)
[2017-05-02] MEDS: Cyanocobalamin TAB* 500 MCG PO SCH (08:32)
[2017-05-02] MEDS: Senna TAB PO SCH (08:32)
[2017-05-02] MEDS: Docusate CAP* 100 MG PO SCH (08:33)
[2017-05-02] MEDS: Propranolol LA CAP* 60 MG PO SCH (08:33)
[2017-05-02] MEDS: amLODIPine TAB* 5 MG PO SCH (08:33)
[2017-05-02] MEDS: Gabapentin CAP(*) 100 MG PO SCH (08:33)
[2017-05-02] MEDS: Lisinopril TAB* 5 MG PO SCH (08:33)
--- NOTE | 2017-05-02 15:58 | OP ---
DATE OF OPERATION: 05/01/17 - ROOM #352 DATE OF : 38 SURGEON: Sigifredo Torres MD. EDUCATIONAL AUDIOLOGIST: RAMIREZ Wu. ANESTHESIOLOGIST: George Wellington DO ANESTHESIA: General. PRE-OP DIAGNOSIS: Herniated nucleus pulposus, L4-L5, on the right. POST-OP DIAGNOSIS: Herniated nucleus pulposus, L4-L5, on the right. OPERATIVE PROCEDURE: Lumbar diskectomy at L4-L5 on the right with microdissection. DESCRIPTION OF PROCEDURE: After satisfactory general anesthesia was obtained, the patient was placed on the operating room table in a prone position with the chest supported on the Rodri frame and the back slightly flexed. The lumbar region was then clipped, prepped and draped in a sterile manner for lumbar laminectomy and the skin incision outlined from L4 to L5. This incision was infiltrated with 1% Xylocaine with epinephrine after which it was turned down sharply to the level of the lumbar fascia. The fascia was divided along the spinous processes of L4 and L5, and the paraspinal musculature was stripped away from these posterior elements using the periosteal elevator and monopolar cautery. An intraoperative x-ray was obtained verifying proper interspace localization, after which a partial parris-laminectomy was carried out by removing the inferior aspect of the L4 lamina and medial aspect of the facet complex on the right side using combination of the Midas Kodi drill and Kerrison rongeurs. This was carried superiorly until the attachment of the ligamentum flavum was taken down. Additional superior exposure was obtained as preoperative images had suggested a superior migration of an extruded disk fragment. After removing the ligamentum flavum, the operating microscope was brought into the field and the remainder of the procedure was done under microscopic visualization. Utilizing microdissection, epidural venous structures were coagulated and divided. Projecting into the most superior aspect of the field was the L4 nerve root. Projecting in the axillary region of this exposure was a freely extruded disk fragment. An opening was made in the thinly stretched posterior longitudinal ligament and multiple fragments removed from this region, which was actually over the L4 vertebral body. The disk space proper was palpated and was felt to be firm and was not entered. At the conclusion of the decompression, both the L4 and L5 nerve roots were noted to be free in their course. Hemostasis was obtained with temporary Gelfoam and after assuring adequate hemostasis, the wound was thoroughly irrigated, after which a piece of Gelfoam was placed over the laminectomy defect. The fascia was then reapproximated with 0 Vicryl suture. The subcutaneous tissue was closed with 3-0 Vicryl suture and the skin closed with skin clips. The estimated blood loss was less than 50 cc, and the final sponge, padding, and needle counts were correct. The patient was taken to the recovery room, extubated, and in stable condition. [id number]/[facility] #: [id number] IRINA
--- NOTE | 2017-05-03 00:30 | DS ---
DISCHARGE SUMMARY: DATE OF ADMISSION: 04/27/17 DATE OF DISCHARGE: 05/02/17. ATTENDING PHYSICIAN: Dr. Torres * (DICTATED BY RAMIREZ WALKER) DISCHARGE DIAGNOSES: 1. Herniated nucleus pulposus, L4-5 on the right. 2. Hypertension. SPECIAL PROCEDURES: Lumbar diskectomy at L4-5 on the right. HOSPITAL COURSE: This is a 77-year-old female presented to the [facility] [place] on with severe right-sided lumbar radiculopathy and intractable back pain. She was admitted for medical management and further evaluation of these conditions. MRI of the lumbar spine was obtained on 04/30/17, which showed a large herniated disk at L4-5 on the right. Pain was managed with oral and IV pain medications, some of which she did not tolerate well. Neurosurgery was consulted for the herniated disk and possible surgical treatments. Elective surgical therapy with lumbar diskectomy at L4-5 on the right. Operation was discussed with the patient and she consented to this surgery. On 05/01/17, she was taken to surgery where under general anesthesia, a lumbar diskectomy at L4-5 on the right operation was carried out. Postoperatively, she was feeling well and the right lower extremity pain was resolved. She continued to have some numbness of the right foot. She is ambulating independently and she was eating, drinking, and voiding without difficulty. Pain is well controlled postoperatively with oral pain medications. On the 1st postoperative day, she was discharged home to the care of her family. DISCHARGE INSTRUCTIONS: Wound care and activity level were discussed with the patient and information was provided. FOLLOWUP: She will be seen in office on 05/09/17 for followup and staple removal. DISCHARGE MEDICATIONS: 1. Colace 100 mg 1 capsule by mouth twice daily. 2. Senna 1 tab by mouth daily. RAMIREZ WALKER [id number]/[facility] #: [id number] MTDD
--- NOTE | 2017-05-04 12:35 | ED ---
Ania Conde Nilda, scribed for Shivam Bruno MD on 04/28/17 at 1615 . Lower Extremity - HPI Summary HPI Summary: Patient is a 77 y.o. F presenting to [facility] with a chief complaint of sharp constant shooting pain that radiates down RLE that was exacerbated yesterday morning. Patient was seen yesterday for pain and was given Rx for oxycodone. She took 2 oxycodone today and symptoms did not resolve. Symptoms alleviated by nothing. Pain is rated 10/10 in severity. Patient reports lower back pain. She denies recent fall, changes in diet, and GI or problems. - History of Current Complaint Chief Complaint: EDBackInjuryPain Stated Complaint: BACK PAIN Time Seen by Provider: 04/28/17 16:00 Hx Obtained From: Patient Onset of Pain: Days - 1 day Onset/Duration: Still Present Severity Currently: Severe Pain Intensity: 10 Pain Scale Used: 0-10 Numeric Timing: Constant Location: Radiates To - RLE Character Of Pain: Sharp Associated Signs And Symptoms: Positive: Other - lower back pain. She denies recent fall, changes in diet, and GIGU problems. Alleviating Factor(s): Nothing - Allergies/Home Medications Allergies/Adverse Reactions: Allergies Allergy/AdvReac Type Severity Reaction Status Date / Time Hydromorphone [From Dilaudid] Allergy Vomiting Verified 04/28/17 18:43 Ciprofloxacin [From Cipro] AdvReac general Verified 02/09/17 10:06 illness Codeine AdvReac Constipatio Verified 02/09/17 10:06 n PMH/Surg Hx/FS Hx/Imm Hx Endocrine/Hematology History: Reports: Hx Anemia - reports it's not iron- deficient, naturally low on hemoglobin Denies: Hx Diabetes Cardiovascular History: Reports: Hx Hypertension - on meds Denies: Hx Congestive Heart Failure, Hx Pacemaker/ICD History: Denies: Hx Renal Disease Musculoskeletal History: Reports: Hx Arthritis - hands and back Sensory History: Reports: Hx Cataracts - reports small at this time, Hx Contacts or Glasses - glasses Denies: Hx Hearing Aid Opthamlomology History: Reports: Hx Cataracts - reports small at this time, Hx Contacts or Glasses - glasses Neurological History: Reports: Hx Migraine - none in 5 yrs, Other Neuro Impairments/Disorders - brain aneurysm/COIL Psychiatric History: Reports: Hx Depression - lot of stress - family health issues Denies: Hx Panic Disorder - Cancer History Cancer Type, Location and Year: SKIN CA- RIGHT SHOULDER Hx Chemotherapy: No Hx Radiation Therapy: No - Surgical History Surgery Procedure, Year, and Place: 1961- OVARY REMOVED and APPENDECTOMY. 1968 TUBAL LIGATION. 02/20/12 ANUERYSM COILING-EMBOLIZATIONS : MICRUS PRESIDIO, MICRUSPHER CERECYTE & CASHMERE COILS ALL MR CONTIONAL 5 UP TO 3T {per " REFERENCE MANUAL FOR MR SAFETY,IMPANTS & DEVICES : 2012 EDITION} (SW). BASAL CELL CARCINOMA REMOVEDFROM RIGHT ARM - 1990 Hx Anesthesia Reactions: No Infectious Disease History: No Infectious Disease History: Denies: Traveled Outside the [place] in Last 30 Days - Family History Known Family History: Positive: Cardiac Disease - GRANDMOTHER - [place], Other - MOTHER - [place] - Social History Alcohol Use: Rare Hx Substance Use: No Substance Use Type: Reports: None Hx Tobacco Use: No Smoking Status (MU): Never Smoked Tobacco Review of Systems Negative: Fever, Chills Negative: Erythema Negative: Sore Throat Negative: Chest Pain Negative: Shortness Of Breath, Cough Positive: Other - Negative changes in diet and GI issues. Negative: Abdominal Pain, Vomiting, Nausea Positive: other - Negative problems. Negative: dysuria, hematuria Positive: Other - RLE pain, lower back pain. Negative: Myalgia, Edema Negative: Rash Neurological: Other - negative fall and dizziness All Other Systems Reviewed And Are Negative: Yes Physical Exam - Summary Physical Exam Summary: + straight leg raise on right, no bony tenderness Constitutional: Well-developed, Well-nourished, Alert. (-) Distressed Skin: Warm, Dry HENT: Normocephalic; Atraumatic Eyes: Conjunctiva normal Neck: Musculoskeletal ROM normal neck. (-) JVD, (-) Stridor, (-) Tracheal deviation Cardio: Rhythm regular, rate normal, Heart sounds normal; Intact distal pulses; The pedal pulses are 2+ and symmetric. Radial pulses are 2+ and symmetric. (-) Murmur Pulmonary/Chest wall: Effort normal. (-) Respiratory distress, (-) Wheezes, (-) Rales Abd: Soft, (-) Tenderness, (-) Distension, (-) Guarding, (-) Rebound Musculoskeletal: (-) Edema, + straight right leg raise, no bony tenderness Lymph: (-) Cervical adenopathy Neuro: Alert, Oriented x3 Psych: Mood and affect Normal Triage Information Reviewed: Yes Vital Signs On Initial Exam: Initial Vitals Temp Pulse Resp BP Pulse Ox 97.4 F 69 16 129/72 100 04/28/17 15:24 04/28/17 15:24 04/28/17 15:24 04/28/17 15:24 04/28/17 15:24 Vital Signs Reviewed: Yes - Bryce Coma Scale Coma Scale Total: 15 Diagnostics - Vital Signs Vital Signs Temp Pulse Resp BP Pulse Ox 04/28/17 15:24 97.4 F 69 16 129/72 100 - Laboratory Result Diagrams: 04/28/17 16:35 04/28/17 16:35 Lab Statement: Any lab studies that have been ordered have been reviewed, and results considered in the medical decision making process. Re-Evaluation - Re-Evaluation First Eval Re-Evaluation Time: 17:50 Comment: Patient unable to ambulate due to active vomiting. Patient will be admitted. Lower Extremity Course/Dx - Course Course Of Treatment: Patient is a 77 y.o. F presenting to [facility] with a chief complaint of sharp, constant shooting pain that radiates down RLE that was exacerbated yesterday morning. Patient was seen yesterday for pain and was given Rx for oxycodone. She took 2 oxycodone today and symptoms did not resolve. Symptoms alleviated by nothing. Pain is rated 10/10 in severity. Patient reports lower back pain. She denies recent fall, changes in diet, and GIGU problems. [1752] ED physician consulted with Dr. Handy (Hospitalist) who will admit patient. Patient understands and agrees with plan. - Diagnoses Provider Diagnoses: Sciatica - Physician Notifications Discussed Care Of Patient With: Gisele Handy - Hospitalist Time Discussed With Above Provider: 17:52 Instructed by Provider To: Admit As Inpatient Discharge - Discharge Plan Condition: Fair Disposition: ADMITTED TO [facility] The documentation as recorded by the Ania hurtado Nilda accurately reflects the service I personally performed and the decisions made by me, Shivam Bruno MD.
== END 2017-05-02 09:50 | disposition home or self-care (01) | DRG 519 ==
LOC: ED 15:13 → MED 18:01 → OBSVTOIN 04-29 12:18 → MED 04-29 14:58 → SSU 05-01 10:57
PROVIDERS: ADMIT Internal Medicine; ATTEND Neurological Surgery
PROC: 0SB20ZZ Excision of Lumbar Vertebral Disc, Open Approach (ICD-10-PCS; principal; 2017-05-01 07:45)
DX: M51.16 Intervertebral disc disorders with radiculopathy, lumbar region (principal); E87.1 Hypo-osmolality and hyponatremia; I10 Essential (primary) hypertension; E87.6 Hypokalemia; D72.829 Elevated white blood cell count, unspecified; Z88.8 Allergy status to other drugs, medicaments and biological substances; Z88.5 Allergy status to narcotic agent
CPT/HCPCS: 36415; 71010; 72100; 72148; 80048; 80053; 85025; 85027; 85652; 86140; 90686; 93005; A9270-GY; G0378; J0690; J1100; J1170; J1650; J1885; J2001; J2270; J2360; J2405; J2550; J2704; J2765; J3010

== ENCOUNTER 2019-09-24 20:01 | Observation (INO) | payer MEDICARE ==
--- OUTSIDE RECORDS SUMMARY | 2019-09-24 20:15 | XMS REPORT | Continuity of Care Document ---
:1940 External Reference #:[id number] Author Name Gris Ramsey M.D., R.D. Address [address] [place] [address] Problems Active Problems Provider Date Essential hypertension BARBARA Reed-Maria Guadalupe Onset: 2013 Idiopathic scoliosis AND/OR Gris Ramsey M.D., R.D. 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 Social History Type Date Description Comments Sex Unknown Tobacco Use Start: Unknown Never Smoked Cigarettes Smoking Status Reviewed: 06/16/19 Never Smoked Cigarettes ETOH Use Rarely consumes alcohol Tobacco Use Start: Unknown Patient has never smoked Recreational Drug Use Denies Drug Use Allergies, Adverse Reactions, Alerts Active Allergies Reaction Severity Comments Date Cipro feels awful on it 12/30/2012 Codeine constipation 12/30/2012 Medications Active Medications SIG Qnty Indications Ordering Date Provider Restasis 1 drop in each 180units Gris Ramsey, 06/16/2019 0.05% eye twice daily Mathew RRemy Emulsion per Ophtho Dextromethorphan-Gua Take 10 ml by 1000ml Cielo Correa, 05/13/2019 ifenesin mouth every 4 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 COACH 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 as needed 20-200mg/10ML Liquid for cough Benzonatate 1 tab by mouth 45caps J20.9 Sid 05/02/2019 100mg three times a day MD Maximino Capsules Magnesium 250MG once daily Sid 11/01/2018 MD Maximino Vitamin B-12 1 by mouth every Gris Ramsey, 07/20/2014 1000mcg day Mathew, RRemy Tablets Meclizine HCL 1 to 2 by mouth 20tabs R42 Cielo Correa, 07/02/2014 12.5mg twice a day to LEARNING COACH Tablets four times a day as needed dizziness/ vertigo Propranolol HCL ER Take 2 Capsule 90caps Gris Ramsey, 02/03/2014 Every Day Barbara Carmona 60mg Caps ER 24HR Metamucil bid Gris Ramsey, 12/30/2012 Powder Barbara Carmona Amlodipine Besylate Take One Tablet Unknown By Mouth Every 10mg Tablets Day Thera-Tears Three capsules Unknown Nutrition every morning and Capsules three capsules every night Vitamin D-400 once daily during Unknown 400Unit winter months Tablets Immunizations CPT Code Status Date Vaccine Lot # [id number] Given 06/02/2019 [place] [id number] Given 04/29/2018 [place] [id number] Given 04/30/2017 Influenza Virus Vaccine, Quadrivalent, 3 Yr > Quad, Preserv Free [id number] Given 06/21/2016 [place] [address] Given 07/08/2015 Prevnar-13 Pneumococcal Conjugate Vaccine [id number] 89065 Given 04/26/2015 [place] [address] Given 07/20/2014 Pneumovax 23 (PPSV23) 65+ years or high risk 2 to [id number] 63 year old 57207 Given 04/21/2013 Influenza Vaccine High Dose PF [id number] 11309 Given 08/18/2008 Tdap (Adacel) [id number] Ordered 04/29/2014 Influenza Virus Vaccine, Quadrivalent, 3 Yr > Quad, Preserv Free [id number] Refused 07/20/2014 Zoster Vaccine Vital Signs Date Vital Result Comment 08/25/2019 10:16am Weight 145.00 lb Weight 65.772 kg BP Systolic 150 mmHg BP Diastolic 90 mmHg Heart Rate 80 /min Body Temperature 97.0 F Respiratory Rate 16 /min Results Test Acquired Date Facility Test Result H/L Range Note CBC Auto 06/16/2019 [facility] White Blood 7.8 10^3/ uL Normal 3.5-10.8 Diff [phone] Count Red Blood Count 4.11 10^6/uL Normal 3.70-4.87 Hemoglobin 12.8 g/dL Normal 12.0-16.0 Hematocrit 38 % Normal 35-47 Mean Corpuscular Volume 92 fL Normal 80-97 Mean Corpuscular Hemoglobin 31 pg Normal 27-31 Mean Corpuscular HGB Conc 34 g/dL Normal 31-36 Red Cell Distribution Width 14 % Normal 10-15 Platelet Count 357 10^3/uL Normal 150-450 Mean Platelet Volume 7.9 fL Normal 7.4-10.4 Abs Neutrophils 4.7 10^3/uL Normal 1.5-7.7 Abs Lymphocytes 2.2 10^3/uL Normal 1.0-4.8 Abs Monocytes 0.6 10^3/uL Normal 0-0.8 Abs Eosinophils 0.2 10^3/uL Normal 0-0.6 Abs Basophils 0.1 10^3/uL Normal 0-0.2 Abs Nucleated RBC 0.0 10^3/uL Granulocyte % 59.9 % Lymphocyte % 28.3 % Monocyte % 8.0 % Eosinophil % 2.0 % Basophil % 1.8 % Nucleated Red Blood Cells % 0.0 Comp Metabolic 06/16/2019 [facility] Sodium 131 mmol/ L Low 135-145 Panel [phone] Potassium 3.9 mmol/L Normal 3.5-5.0 Chloride 97 mmol/L Low 101-111 Co2 Carbon Dioxide 26 mmol/L Normal 22-32 Anion Gap 8 mmol/L Normal 2-11 Glucose 109 mg/dL High 70-100 Blood Urea Nitrogen 11 mg/dL Normal 6-24 Creatinine 0.83 mg/dL Normal 0.51-0.95 BUN/Creatinine Ratio 13.3 Normal 8-20 Calcium 10.1 mg/dL Normal 8.6-10.3 Total Protein 7.0 g/dL Normal 6.4-8.9 Albumin 4.5 g/dL Normal 3.2-5.2 Globulin 2.5 g/dL Normal 2-4 Albumin/Globulin Ratio 1.8 Normal 1-3 Total Bilirubin 0.50 mg/dL Normal 0.2-1.0 Alkaline Phosphatase 80 U/L Normal 34-104 Alt 14 U/L Normal 7-52 Ast 22 U/L Normal 13-39 Egfr Non- 66.1 >60 Egfr 80.0 >60 1 Lipid Profile 06/16/2019 [facility] Triglycerides 129 mg/dL 2 (Trig/Chol/HDL) [phone] Cholesterol 206 mg/dL 3 HDL Cholesterol 61.1 mg/dL 4 LDL Cholesterol 119 mg/dL 5 Laboratory test 06/16/2019 [facility] Vitamin B12 866 pg/mL Normal 180-914 6 finding [phone] Vitamin D Total 25(Oh) 32.7 ng/mL Normal 20-50 7 Hemoglobin A1c 5.6 % Normal 4.0-5.6 8 1 Because ethnic data is not always readily available, this report includes an eGFR for both -Americans and non- Americans. The National Kidney Disease Education Program (NKDEP) does not endorse the use of the MDRD equation for patients that are not between the ages of 18 and 70, are , have extremes of body size, muscle mass, or nutritional status, or are non- or non-. According to the National Kidney Foundation, irrespective of diagnosis, the stage of the disease is based on the level of kidney function: Stage Description GFR(mL/min/1.73 m(2)) 1 Kidney damage with normal or decreased GFR 90 2 Kidney damage with mild decrease in GFR 60-89 3 Moderate decrease in GFR 30-59 4 Severe decrease in GFR 15-29 5 Kidney failure <15 (or dialysis) 2 Desirable: <150 Borderline High: 150-199 High: 200-499 Very High: >500 3 Desirable: <200 Borderline High: 200-239 High: >239 4 Low: <40 Desirable: 40-60 High: >60 5 Desirable: <100 Near Optimal: 100-129 Borderline High: 130-159 High: 160-189 Very High: >189 6 Normal Range 180 to 914 Indeterminate Range 145 to 180 Deficient Range <145 7 Total 25-Hydroxyvitamin D2 and D3 (25-OH-VitD) <10 ng/mL (severe deficiency) 10-19 ng/mL (mild to moderate deficiency) 20-50 ng/mL (optimum levels) 51-80 ng/mL (increased risk of hypercalciuria) >80 ng/mL (toxicity possible) 8 Therapeutic target for the treatment of diabetes mellitus patients is <7% HBA1C, and in selective patients <6.0%. Please refer to [place] [employer] diabetic care guidelines for further information. Procedures Date Code Description Status 01/27/2019 64021674 Colonoscopy Completed Medical Devices Description No Information Available Encounters Type Date Location Provider Dx Diagnosis Office Visit 06/16/2019 Main Office Gris Ramsey, Z00.00 Encntr for general 1:45p Mathew, R.DChema adult medical exam w/o abnormal findings R20.2 Paresthesia of skin Office Visit 05/13/2019 8:45a Main Office Cielo Sunny, J20.9 Acute bronchitis, LEARNING COACH unspecified Office Visit 05/02/2019 11:15a Main Office Sid J20.9 Acute bronchitis, MD Maximino unspecified Assessments Date Code Description Provider 08/25/2019 M81.0 Osteoporosis Gris Ramsey M.D., R.D. 08/19/2019 M81.0 Osteoporosis Gris Ramsey M.D., R.D. 06/16/2019 Z00.00 Encounter for general adult medical Gris Ramsey M.D., R.D. examination without abnormal findings 06/16/2019 R20.2 Paresthesia of skin Gris Ramsey M.D., R.D. 06/16/2019 Z00.00 Encounter for general adult medical Gris Ramsey M.D., R.D. examination without abnormal findings 06/16/2019 I10 Essential (primary) hypertension Gris Ramsey M.D., R.D. 06/16/2019 R20.2 Paresthesia of skin Gris Ramsey M.D., R.D. 06/16/2019 Z00.00 Encntr for general adult medical exam w/o abnormal findings 06/16/2019 I10 Essential (primary) hypertension 06/16/2019 R20.2 Paresthesia of skin 05/13/2019 J20.9 Acute bronchitis, unspecified Cielo Sunny, LEARNING COACH 05/02/2019 J20.9 Acute bronchitis, unspecified Sid Stanton MD Plan of Treatment Future Appointment(s):06/23/2020 2:15 pm - Gris Ramsey M.D., R.D. at Main [id number]/25/2019 - Gris aRmsey M.D., R.D.M81.0 OsteoporosisRecommendations: I would recommend 500-600 mg calcium with Vitamin D daily plus what you get in diet. Increase weight-bearing exercise. We will recheck a bone density scan in 1 -2 years. Functional Status Description No Information Available Mental Status Description No Information Available Referrals Description No Information Available
[2019-09-24] MEDS ORDERED: Aspirin 81 mg CHEW TAB* 81 MG TAB.CHEW PO ONE (20:52)
--- NOTE | 2019-09-24 20:54 | ED ---
HPI Chest Pain - HPI Summary HPI Summary: This patient is a 79 year old F presenting to ED with a chief complaint of chest pain since this morning. The chest pain is located in the center of her chest. Patient reports feeling tired and exhausted all day. She thought she had indigestion and also reports severe headache since 1100, as if her head is going to blow up. She has had intermittent chest pain throughout the day, which worsened after dinner for an episode lasting 5-6 minutes. During this episode, patient reports mild shortness of breath, diaphoresis, and nausea. However, she did not vomit. Patient denies any weakness in the arms and legs or visual deficits today. Patient previously had a heart spasm and was put on propranolol. Patient typically takes a baby aspirin every night, but she did not take one tonight. Patient states her last stress test was a while ago. FHx of [place] in grandmother. Patient denies a history of any blood clot. She denies any long recent travel. Patient is not on any hormones. PMHx of brain aneurysm, migraines, and HTN. Patients brain aneurysm was 1cm, but it was coiled in 2011. The patient rates the chest pain 5/10 in severity. Symptoms aggravated by nothing. Symptoms alleviated by nothing. Medications reviewed. Allergies noted. - History of Current Complaint Chief Complaint: EDChestPainROMI Time Seen by Provider: 09/24/19 20:43 Hx Obtained From: Patient Onset/Duration: Started Hours Ago - This morning, Still Present, Worse Since Timing: Intermittent, Lasting Minutes - 5-6 minutes Initial Severity: Moderate Current Severity: Moderate Pain Intensity: 5 Pain Scale Used: 0-10 Numeric Chest Pain Location: Mid Sternal Aggravating Factor(s): Nothing Alleviating Factor(s): Nothing Associated Signs and Symptoms: Positive: Chest Pain, Headaches, Shortness of Breath, Diaphoresis, Nausea. Negative: Vision Changes, Weakness, Vomiting - Additional Pertinent History Primary Care Physician: [id number] - Allergy/Home Medications Allergies/Adverse Reactions: Allergies Allergy/AdvReac Type Severity Reaction Status Date / Time ciprofloxacin [From Cipro] Allergy general Verified 10/30/18 16:37 illness codeine Allergy Constipatio Verified 10/30/18 16:36 n hydromorphone [From Dilaudid] Allergy Vomiting Verified 10/30/18 16:36 Home Medications: Home Medications Aspirin EC TAB* [Ecotrin EC Low Dose 81 MG*] 81 mg PO DAILY 09/24/19 [History Confirmed 09/24/19] Cholecalciferol TAB* [Vitamin D TAB*] 1,000 unit PO DAILY 09/24/19 [History Confirmed 09/24/19] Cyclosporine 0.05% OPHTH (NF) [Restasis 0.05% OPHTH] 1 drop BOTH EYES BID [History Confirmed 09/24/19] Linaclotide (NF) [Linzess (NF)] 290 mcg PO DAILY 09/24/19 [History Confirmed ] Omeg3/Epa/Dha/Fish Oil/Flax/E [Thera Tears Nutrition] 3 cap PO BID 09/24/19 [ History Confirmed 09/24/19] Propranolol LA CAP* [Inderal LA CAP*] 60 mg PO BID 09/24/19 [History Confirmed 09/24/19] amLODIPine TAB* [Norvasc 5 mg TAB*] 10 mg PO DAILY 09/24/19 [History Confirmed 09/24/19] National Institutes Of Health - NIH Scale Level of Consciousness: Alert/Keenly Responsive Ask Patient the Month and His/Her Age: Both Correct Ask Pt to Open/Close Eyes and Patrol Police Sergeant/Release Non-Paretic Hand: Both Correctly Best Gaze (Only Horizontal Eye Movement): Normal Visual Field Testing: No Visual Loss Facial Paresis-Pt to Smile & Close Eyes or Grimace Symmetry: Normal/Symmetrical Motor Function - Right Arm: No Drift-Holds 10 Seconds Motor Function - Left Arm: No Drift-Holds 10 Seconds Motor Function - Right Leg: No Drift-Holds 10 Seconds Motor Function - Left Leg: No Drift-Holds 10 Seconds Limb Ataxia-Must be out of Proportion to Weakness Present: Absent Sensory (Use Pinprick to Test Arms/Legs/Trunk/Face): Normal Best Language (Describe Picture, Name Items): No Aphasia Dysarthria (Read Several Words): Normal Extinction and Inattention: No Abnormality Total Score: 0 PMH/Surg Hx/FS Hx/Imm Hx Endocrine/Hematology History: Reports: Hx Anemia - reports it's not iron- deficient, naturally low on hemoglobin Denies: Hx Diabetes Cardiovascular History: Reports: Hx Hypertension - on meds Denies: Hx Congestive Heart Failure, Hx Pacemaker/ICD History: Denies: Hx Renal Disease Musculoskeletal History: Reports: Hx Arthritis - hands and back Denies: Hx Osteoporosis Sensory History: Reports: Hx Cataracts - reports small at this time, Hx Contacts or Glasses - glasses Denies: Hx Hearing Aid Opthamlomology History: Reports: Hx Cataracts - reports small at this time, Hx Contacts or Glasses - glasses Neurological History: Reports: Hx Migraine - none in 5 yrs, Other Neuro Impairments/Disorders - brain aneurysm/COIL Psychiatric History: Reports: Hx Depression - lot of stress - family health issues Denies: Hx Panic Disorder - Cancer History Cancer Type, Location and Year: SKIN CA- RIGHT SHOULDER Hx Chemotherapy: No Hx Radiation Therapy: No - Surgical History Surgery Procedure, Year, and Place: 1961- OVARY REMOVED and APPENDECTOMY. 1967 TUBAL LIGATION. 02/20/12 ANUERYSM COILING-EMBOLIZATIONS : MICRUS PRESIDIO, MICRUSPHER CERECYTE & CASHMERE COILS ALL MR CONTIONAL 5 UP TO 3T {per " REFERENCE MANUAL FOR MR SAFETY,IMPANTS & DEVICES : 2012 EDITION} (SW). BASAL CELL CARCINOMA REMOVEDFROM RIGHT ARM - 1990. 04/2017 RUPTURED DISC REMOVAL (L5? ) Hx Anesthesia Reactions: No Infectious Disease History: No Infectious Disease History: Denies: Traveled Outside the [place] in Last 30 Days - Family History Known Family History: Positive: Cardiac Disease - GRANDMOTHER - [place], Other - MOTHER - [place] - Social History Alcohol Use: Rare Hx Substance Use: No Substance Use Type: Reports: None Hx Tobacco Use: No Smoking Status (MU): Never Smoked Tobacco Review of Systems Constitutional: Other - Tired/exhausted Positive: Skin Diaphoresis Eyes: Negative - Visual defects Positive: Chest Pain Positive: Shortness Of Breath Positive: Nausea. Negative: Vomiting Positive: Headache. Negative: Weakness All Other Systems Reviewed And Are Negative: Yes Physical Exam - Summary Physical Exam Summary: Constitutional: Well-developed, Well-nourished, Alert. (-) Distressed Skin: Warm, Dry HENT: Normocephalic; Atraumatic Eyes: Conjunctiva normal Neck: Musculoskeletal ROM normal neck. (-) JVD, (-) Stridor, (-) Tracheal deviation Cardio: Rhythm regular, rate normal, Heart sounds normal; Intact distal pulses; Radial pulses are 2+ and symmetric. (-) Murmur Pulmonary/Chest wall: Effort normal. (-) Respiratory distress, (-) Wheezes, (-) Rales Abd: Soft, (-) tenderness, (-) Distension, (-) Guarding, (-) Rebound Musculoskeletal: (-) Edema Lymph: (-) Cervical adenopathy Neuro: Alert, Oriented x3. NIH: 0 Psych: Mood and affect Normal Triage Information Reviewed: Yes Vital Signs On Initial Exam: Initial Vitals Temp Pulse Resp BP Pulse Ox 97.3 F 79 20 167/89 99 09/24/19 20:03 09/24/19 20:03 09/24/19 20:03 09/24/19 20:03 09/24/19 20:03 Vital Signs Reviewed: Yes Procedures - Sedation Patient Received Moderate/Deep Sedation with Procedure: No Diagnostics - Vital Signs Vital Signs Temp Pulse Resp BP Pulse Ox 09/24/19 20:47 77 19 187/89 97 09/24/19 20:45 22 09/24/19 20:03 97.3 F 79 20 167/89 99 - Laboratory Result Diagrams: 09/24/19 20:56 09/24/19 20:56 Lab Statement: Any lab studies that have been ordered have been reviewed, and results considered in the medical decision making process. - Radiology CXR Radiology Interpretation Completed By: ED Physician Summary of Radiographic Findings: No acute processes, pending official radiology report. - EKG 2003 Cardiac Rate: NL - 86 BPM EKG Rhythm: Sinus Rhythm Summary of EKG Findings: EKG at 2003 revealed NSR at [address]PM. No ischemic changes. Dr. Plunkett has reviewed this radiology report. Re-Evaluation - Re-Evaluation First Eval Re-Evaluation Time: 21:31 Comment: Discussed results with patient. Patient agrees to be admitted for observation and stress test tomorrow. Chest Pain Course/Dx - Course Course Of Treatment: Patient is here with multiple episodes of chest pain with some atypical and typical features. Patient had an EKG performed which and no ischemic changes. Patient had a chest x-ray which is grossly unremarkable. Patient's story is not consistent with aortic dissection. Patient has no PE risk factors and has a wells score of 0. Given patient's heart score of 4 and no recent stress test, patient was admitted to the hospital for stress test - Diagnoses Provider Diagnoses: Chest pain - Provider Notifications Discussed Care Of Patient With: Sarah France Time Discussed With Above Provider: 21:32 Instructed by Provider To: Admit As Observation - Discussed patient case with Dr. France, hospitalist, who accepted the patient for admission to [facility]. Discharge ED - Sign-Out/Discharge Documenting (check all that apply): Patient Departure - Admit - Discharge Plan Condition: Good Disposition: ADMITTED TO [facility] Referrals: Gris Martin MD [Primary Care Provider] - - Billing Disposition and Condition Condition: GOOD Disposition: Admitted to [facility] - Attestation Statements Document Initiated by Scribe: Yes Documenting Scribe: Amarjit Prater Provider For Whom Marii is Documenting (Include Credential): Jarad Plunkett MD Scribe Attestation: I, Amarjit Prater, scribed for Jarad Plunkett MD on 09/24/19 at 2141. Scribe Documentation Reviewed: Yes Provider Attestation: The documentation as recorded by the Amarjit hurtado accurately reflects the service I personally performed and the decisions made by me, Jarad Plunkett MD Status of Scribe Document: Viewed
[2019-09-24 21:02] LABS: ABS Basophils 0.1 10^3/ul (0-0.2); ABS Eosinophils 0.2 10^3/ul (0-0.6); ABS Lymphocytes 2.4 10^3/ul (1.0-4.8); ABS Monocytes 0.6 10^3/ul (0-0.8); Hematocrit 36 % (35-47); Hemoglobin 12.7 g/dL (12.0-16.0); Lymphocyte % 32.6 %; Mean Corpuscular HGB Conc 35 g/dL (31-36); Mean Corpuscular Hemoglobin 32 pg (27-31); Mean Corpuscular Volume 91 fL (80-97); Mean Platelet Volume 6.9 fL (7.4-10.4); Platelet Count 367 10^3/uL (150-450); Red Blood Count 3.94 10^6 /uL (3.70-4.87); Red Cell Distribution Width 14 % (10-15); White Blood Count 7.3 10^3/uL (3.5-10.8)
[2019-09-24 21:23] LABS: Albumin 4.5 g/dL (3.2-5.2); Albumin/Globulin Ratio 1.6 (1-3); Calcium 10.4 mg/dL (8.6-10.3); EGFR African American 83.5 (>60); Globulin 2.9 g/dL (2-4); Potassium 3.6 mmol/L (3.5-5.0); Total Bilirubin 0.4 mg/dL (0.2-1.0); Total Protein 7.4 g/dL (6.4-8.9)
[2019-09-24] MEDS ORDERED: Iohexol 350* (CONTRAST) 500 ML MDV IV ONE (22:01)
[2019-09-24] MEDS ORDERED: Acetaminophen TAB* 325 MG PO PRN (22:17)
[2019-09-24] MEDS ORDERED: hydrALAZINE IV* 20 MG/ML VIAL IV SLOW PU PRN (22:18)
[2019-09-24] MEDS: Famotidine TAB* 20 MG PO SCH (23:11)
--- NOTE | 2019-09-25 01:21 | HP ---
CC: Dr. Ramsey HISTORY AND PHYSICAL: DATE OF ADMISSION: 09/24/19 PRIMARY CARE PROVIDER: Dr. Ramsey. TIME OF EVALUATION: 9:30 p.m. CHIEF COMPLAINT: Chest pain. HISTORY OF PRESENT ILLNESS: Ms. Mckinney is an 79-year-old female with a past medical history of hyper tension, osteoporosis, migraines, brain aneurysm, chronic dry eye, who presented to the emergency [facility] with complaints of chest pain. The patient states that she woke up not feeling so well today. She felt fatigued, had some headache, and some chest discomfort that she rates a 2 to 3. She went on with her day, did her laundry, clean ed the house, and she states that the symptoms did not kelley but did not get worse either. She had a salad and goulash for dinner and states that 45 minutes after dinner, she experienced severe excruci ating retrosternal chest pain radiating to her jaw and between her shoulder blades. She states the p ain was 8/10, "it brought tears to my eyes," associated with nausea but no vomiting. She denies dizz iness, lightheadedness, diaphoresis, or shortness of breath associated with the episode. She states that she told her grandson that she needs to come to the hospital and by the time she arrived to the emergency room, the pain had subsided and was down to a 4/10. At the time of my evaluation, the pain was resolved. After further questioning, the patient stated she had a similar episode about a week ago, not as inte nse but with the same pattern of crushing chest pain radiating between shoulder blades and jaw. She did mention that to her daughter who advised her to come to the emergency room for further evaluation , but since these symptoms had improved, she declined coming to the hospital. She states that she had similar chest pain many many years ago with a reported negative stress test d one as outpatient with Dr. Alejandro. The patient denies vomiting, diarrhea, urinary complaints, diaphoresis, or shortness of breath. PAST MEDICAL HISTORY: 1. Hypertension. 2. Osteoporosis. 3. Migraines. 4. History of brain aneurysm, status post titanium coils in January [address] Kirby at [place]. cristiano states that she had an evaluation in December 2018 and was told that "everything is stable." 5. Chronic dry eye. PAST SURGICAL HISTORY: Status post appendectomy and ovary cyst removal in 1961. MEDICATIONS: 1. Amlodipine 10 mg p.o. daily. 2. Aspirin 81 mg p.o. daily. 3. Cholecalciferol 1000 units p.o. daily. 4. Restasis 1 drop to both eyes b.i.d. 5. Linzess 290 mcg p.o. daily. 6. TheraTears Nutrition 3 capsules p.o. b.i.d. 7. Propranolol LA 60 mg p.o. b.i.d. ALLERGIES: To CIPROFLOXACIN, CODEINE, and HYDROMORPHONE. FAMILY HISTORY: Grandmother had a history of coronary artery disease. Mother had a history of cance r. SOCIAL HISTORY: No history of tobacco, alcohol, or drug use. 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 Surrogate decision maker is her daughter, Ellen Mckinney, phone number [phone]. REVIEW OF SYSTEMS: A 14-point review of systems was performed and all the pertinent negative and pos itive findings are in the HPI. PHYSICAL EXAMINATION VITAL SIGNS: Temperature 97.3, heart rate is 63, respiratory rate is 14, oxygen saturation is 97% on room air, blood pressure is 141/85. HEENT: Pupils are equal. Moist mucous membranes. CHEST: Breath sounds bilaterally with no added sounds. There is some pain on palpation of the anter ior chest wall on the left. CVS: Normal S1, S2. Regular rate and rhythm. ABDOMEN: Soft, nontender, nondistended. Bowel sounds are present. EXTREMITIES: No edema. NEURO: She is alert and oriented x3. Face is symmetric. Speech is clear. Cranial nerves II through XII are grossly intact. She is able to move all 4 extremities. Power is 5/5 in all 4. Sensation i s intact. DIAGNOSTIC STUDIES/LAB DATA: The patient had a CBC that showed WBC of 7.3, hemoglobin 12.7, hematoc rit of 36, platelets of 367 with 55% neutrophils. Chemistry showed sodium of 133, potassium of 3.6, c hloride of 100, bicarb of 25, BUN of 12, creatinine 0.8, glucose of 117, calcium of 10.4. LFTs are n ormal. EKG showed sinus rhythm at 86 beats per minute with no acute ischemic changes. No significant change when compared to her prior EKG from April 2017. Chest x-ray not officially read, but to my read does not show any acute cardiopulmonary disease. ASSESSMENT AND PLAN: Ms. Mckinney is an 79-year-old female with a past medical history of hypertension ; osteoporosis; brain aneurysm, status post coiling, who presented to the emergency room with complai nts of chest pain. 1. Chest pain, rule out acute coronary syndrome. I am concerned that the patient's pattern of pain and the fact that she has had the similar episode a week ago not as severe. Her HEART score is 4, pr edicting a risk of MACE of 12% to 16%. The patient will be admitted to the telemetry floor. We are g oing to check serial troponins and if acute coronary syndrome is ruled out, she will have an exercise Myoview stress test in the morning. She has athletic shoes on and she is not sure if she will be ab le to exercise but if that is the case, then we can switch her to a pharmacological stress test. Wit h her severe pain radiating to her back, we will also check a CT of the chest to rule out dissection since the patient already has a history of aneurysm. If her whole workup is negative, the differenti al would include gastrointestinal etiology for her symptoms, since the pain started after dinner and distribution could also be secondary to esophageal spasm. If her whole workup is negative, she will be discharged home and she could have a gastrointestinal workup as outpatient with her PCP. For now, I will also give her famotidine. She will be continued on her aspirin. We will hold her beta block er in preparation for stress test in the morning. 2. Hypertension. The patient's blood pressure was elevated when she arrived to the emergency room, but it is already trending down. We will continue to monitor. 3. Minimal hypercalcemia. The patient is on vitamin D as outpatient and she already has a history o f osteoporosis. I suggest repeating her calcium level and checking vitamin D level as outpatient to see if the dose needs to be adjusted but the calcium is minimally elevated at 10.4 with her normal li jo of 10.3. 4. DVT prophylaxis. The patient has a score of 3 on DVT prophylaxis Risk Assessment Guide and she w ill be started on SCDs. 5. Code status was discussed with the patient. She wishes to be a full code. TIME SPENT: Approximately 45 minutes was spent with patient and daughter interview, medical records review, physical examination to complete this admission, more than half of this time was spent face-t o-face with the patient in coordination of care. [id number]/[facility] #: [id number]
[2019-09-25 06:38] LABS: Calcium 9.9 mg/dL (8.6-10.3); Potassium 3.7 mmol/L (3.5-5.0)
[2019-09-25 06:44] LABS: BUN/Creatinine Ratio 15.2 (8-20); EGFR African American 84.7 (>60)
[2019-09-25] MEDS ORDERED: PTO:Cyclosporine 0.05% OPHTH (NF) 0.4 ML VIAL BOTH EYES SCH (09:00)
[2019-09-25] MEDS ORDERED: Cholecalciferol TAB* 1000 UNITS PO SCH (09:00)
[2019-09-25] MEDS ORDERED: amLODIPine TAB* 5 MG PO SCH (09:00)
[2019-09-25] MEDS ORDERED: Aspirin EC TAB* 81 MG TAB.EC PO SCH (09:00)
[2019-09-25] MEDS: Famotidine TAB* 20 MG PO SCH (09:30)
[2019-09-25] MEDS ORDERED: Propranolol LA CAP* 60 MG PO SCH (12:00)
[2019-09-25 16:11] VITALS: BP 134/70
[2019-09-25 16:14] LABS: HDL Cholesterol 58.3 mg/dL
--- NOTE | 2019-09-25 21:34 | DS ---
CC: Gris Ramsey MD; Jacob Alejandro MD * DISCHARGE SUMMARY: DATE OF ADMISSION: 09/24/19 DATE OF DISCHARGE: 09/25/19 PRIMARY CARE PROVIDER: Gris Ramsey MD MID WIFE: Jacob Alejandro MD. ATTENDING PHYSICIAN: Chela John MD * (dictated by RAMIREZ Gardiner). PRIMARY DIAGNOSIS: Chest pain, acute coronary syndrome ruled out. SECONDARY DIAGNOSES: 1. Hypertension. 2. Osteoporosis. 3. Migraine. 4. Chronic dry eye. 5. History of brain aneurysm, status post coiling January 2012, [facility]. STUDIES WHILE IN THE HOSPITAL: 1. Chest x-ray, impression: Findings suggestive of COPD, no evidence for acute disease. 2. Brain CT, impression: No acute intracranial hemorrhage. Cluster of metal coils in the left parasellar region most likely used for treatment of an intracranial aneurysm noted on prior CT of 10/12/13. No significant new findings. 3. CTA of the chest, impression: No evidence of an aortic aneurysm or dissection. No pulmonary embolic disease, patchy areas of ground glass opacities scattered throughout the lung parenchyma. This may be due to motion artifact. It does raise the possibility of bronchiolitis. 4. EKG: Rate 86, no ST elevation, mild depression in V3, T-wave inversion in V1 and V2. 5. EKG: Rate [address] elevation, depression or T-wave inversions. 6. Stress test EKG portion: Resting EKG normal sinus rhythm, 78, no acute ST- T wave changes. Exercise by standard Rafael protocol to 3 minutes, stopped due to fatigue. Heart rate had rapid rise to 106% age-predicted heart rate. Normal 1 minute recovery heart rate. No reproduction of patient's chest discomfort with exercise, baseline hypertension with hypertensive response to exercise. Of note, no definitive evidence for significant EKG changes with exercise. No arrhythmias provoked. Poor exercise capacity with indeterminant Burciaga score exercise portion based solely on time of exercise. 7. Nuclear portion, impression: No evidence for stress-induced myocardial ischemia or presence of an artifact. Normal left ventricular wall motion and ejection fraction indeterminant range TID value (1.24). Elevated TID of LV is concerning for presence of coronary artery disease. DISCHARGE MEDICATIONS: Home medications: 1. Amlodipine 10 mg p.o. daily. 2. Aspirin 81 mg p.o. daily. 3. Cholecalciferol 1000 units p.o. daily. 4. Cyclosporin 0.05% ophthalmic 1 drop to both eyes b.i.d. 5. Linaclotide 290 mcg p.o. daily. 6. TheraTears nutrition capsule, 3 caps p.o. b.i.d. 7. Propranolol LA 60 mg p.o. daily. New home medications: 1. Famotidine 20 mg p.o. b.i.d. HISTORY OF PRESENT ILLNESS: Ms. Mckinney is an 79-year-old female with past medical history of hypertension and brain aneurysm coiling, who presented to the ER with complaints of chest pain. The patient reports that she had intermittent chest pain throughout the day, but chest pain became constant after dinner and was so painful it "brought tears to my eyes." She reports that she then came to the ER to seek medical attention. She reports that she had associated nausea without vomiting, diaphoresis, or shortness of breath. She has had similar episode in the past. Her daughter reports that this was last week. It was not associated with eating whereas this episode appeared to occur after eating. The patient states that the pain was reproducible with palpation, but not reproducible with deep breathing. Upon arrival to the ER, the patient had troponins, which were negative x3. An EKG did show possible ST depression in V3 with T-wave inversion in V1, V2. This was not present on the following day's EKG. She was admitted to [facility] and was normal sinus rhythm throughout her stay. Nuclear stress test was obtained. Her EKG portion was indeterminant simply based on length of time of exercise, but did report no definitive evidence for significant EKG changes with exercise. Nuc med portion shows no evidence for ischemia no infarct, normal LV wall motion and ejection fraction. The patient's TID was 1.24 and was reportedly indeterminant. This was discussed with the on-call c consultant, who recommended outpatient echo to evaluate for LVH and outpatient cardiology consult. The patient follows with Dr. Alejandro. She has been recommended to follow up with him within 1 to 2 weeks of discharge. Risk stratification was obtained with hemoglobin A1c, which is pending at the time of discharge. Lipid panel is also pending at the time of this dictation. The patient will continue on her home medications and will follow up with her primary care provider. She reports that she has had no chest pain today. She did not have chest pain during exercise. At this time, the patient will be discharged on famotidine and will follow up with the primary care provider. She denies chest pain, shortness of breath, dizziness, lightheadedness, vision changes, cough, fever, chills, abdominal pain, nausea, vomiting, diarrhea, myalgias, arthralgias. The patient is stable for discharge home. PHYSICAL EXAMINATION: Vital Signs: Temperature 97.7 oral, heart rate 81, respiratory rate 16, oxygen saturation 98% on room air, blood pressure 130/74. General: Ms. Mckinney is a well-developed, well-nourished, overweight, elderly white woman, who is sitting at the edge of her bed. She appears to be in no acute distress. She is pleasant, cooperative, and appropriate. HEENT: PERRL. EOMI. Visual hernandez are grossly intact. Sclerae are nonicteric without injection. Hearing is grossly intact. Oral mucous membranes are moist. There are no lesions. The pharynx is clear. The tongue is at midline. Palate elevates symmetrically. Cardiovascular: Regular rate and rhythm with S1, S2 present. No murmurs, rubs, clicks, or gallops. There is no JVD or peripheral edema. Chest wall is nontender to palpation. Pulmonary: Symmetrical chest expansion. No use of accessory muscles. Clear to auscultation without rhonchi , wheeze, or rales. Abdomen: Bowel sounds noted in all quadrants. Abdomen is soft and nontender to palpation. There is no epigastric tenderness. Neuro: The patient is awake. She is alert and oriented x3. Cranial nerves II through XII are grossly intact and she is able to move all of her extremities with motor strength of 5/5 bilaterally in the upper and lower extremities. DISCHARGE PLAN: Ms. Mckinney will be discharged to home. CONDITION: Good. DIET: Heart healthy. ACTIVITY: As tolerated. MEDICATIONS: Famotidine to pharmacy. EDUCATION: 1. Follow up with primary care provider in 4 to 7 days. Discuss recent hospitalization, lipid panel, hemoglobin A1c results. 2. Follow up with c consultant, Dr. Alejandro in 1 to 2 weeks. Discuss possible echo and further workup for LVH. 3. Return to the ER or nearest hospital if you experience any return or worsening of symptoms, chest pain or discomfort, shortness of breath, dizziness , lightheadedness, loss of consciousness, high fevers, chills, night sweats, or any other worrisome signs or symptoms. This is a summarized report of a complex medical history and hospital stay. For further details, please see the entire medical record. TIME SPENT: Approximately 30 minutes was spent on this discharge, greater than half that time was spent adwl-ag-inea with the patient discussing discharge plans and instructions. RAMIREZ MCCARTY [id number]/[facility] #: [id number] [place]
== END 2019-09-25 16:10 | disposition home or self-care (01) ==
LOC: ED 20:01 → MEDTELE 21:36
PROVIDERS: ADMIT Internal Medicine; ATTEND Internal Medicine
DX: R07.9 Chest pain, unspecified (principal); I10 Essential (primary) hypertension; M81.0 Age-related osteoporosis without current pathological fracture; G43.909 Migraine, unspecified, not intractable, without status migrainosus; E83.52 Hypercalcemia; R06.02 Shortness of breath; R53.83 Other fatigue; H04.129 Dry eye syndrome of unspecified lacrimal gland; Z88.1 Allergy status to other antibiotic agents; Z86.79 Personal history of other diseases of the circulatory system; Z79.82 Long term (current) use of aspirin; Z79.899 Other long term (current) drug therapy; Z85.828 Personal history of other malignant neoplasm of skin
CPT/HCPCS: 36415; 70450; 71046; 71275; 78452; 80048; 80053; 80061; 83036; 84484; 85025; 93005; 93017; 99284; A9270-GY; A9502; G0378; Q9967